=== PATIENT | female | born 1945 | race Caucasian/White ===

== ENCOUNTER 2017-08-12 13:03 | Inpatient (IN) ==
[2017-08-12] MEDS ORDERED: IOPAMIDOL 100 ML BOTTLE IV ONE (13:04)
[2017-08-12] MEDS ORDERED: LACTATED RINGERS 1,000 ML IV ONE ×2 (13:24→14:27)
[2017-08-12] MEDS ORDERED: PROMETHAZINE 25 MG/ML VIAL IV ONE ×2 (13:24→15:52)
[2017-08-12] MEDS ORDERED: HYDROmorphone 2 MG/ML VIAL IV PRN (13:24)
[2017-08-12] MEDS ORDERED: ONDANSETRON 4 MG/2 ML VIAL IV ONE (13:24)
--- NOTE | 2017-08-12 13:30 | Emergency Department Note ---
Nausea/Vomiting/Diarrhea HPI - General Chief complaint: Nausea/Vomiting/Diarrhea Stated complaint: n/v/d Time Seen by Provider: 08/12/17 13:05 Source: patient Mode of arrival: ambulatory Limitations: no limitations - History of Present Illness HPI Narrative: Patient presents, 30 minutes of severe sudden onset epigastric pain wrapping around to her back. Feeling as though she has to retch but not yet vomiting. Rates pain as severe. States that she has never had this before. History is limited due to acute duress - Related Data Home Medications Medication Instructions Recorded Confirmed Albuterol Sulfate [Proair Hfa] 8.5 gm IH Q4 PRN 12/09/14 12/09/14 Amitriptyline [Elavil] 10 mg PO HS 12/09/14 12/09/14 Budesonide/Formoterol Fumarate 10.2 gm IH BID 12/09/14 12/09/14 [Symbicort 80-4.5 Mcg Inhaler] Citalopram [Celexa] 40 mg PO DAILY 12/09/14 12/09/14 Furosemide [Lasix] 40 mg PO DAILY 12/09/14 12/09/14 Gabapentin [Neurontin] 300 mg PO BID 12/09/14 12/09/14 Insulin Aspart [Novolog Flexpen] 10 unit SQ DAILY 12/09/14 12/09/14 Insulin Detemir [Levemir Flextouch] 60 unit SQ DAILY 12/09/14 12/09/14 Insulin Detemir [Levemir Flextouch] 90 unit SQ HS 12/09/14 12/09/14 Ipratropium/Albuterol [Duoneb] 3 ml NEB Q6HRT 12/09/14 12/09/14 Montelukast Sodium [Singulair] 10 mg PO DAILY 12/09/14 12/09/14 Potassium Chloride [Klor-Con M10] 10 meq PO DAILY 12/09/14 12/09/14 Simvastatin [Zocor] 20 mg PO HS 12/09/14 12/09/14 Spironolactone [Aldactone] 50 mg PO DAILY 12/09/14 12/09/14 metFORMIN HCL [Fortamet] 1,000 mg PO BID 12/09/14 12/09/14 Previous Rx's Medication Instructions Recorded Cyclobenzaprine [Flexeril] 5 mg PO TIDP PRN #20 tablet 12/09/14 Allergies Allergy/AdvReac Type Severity Reaction Status Date / Time codeine Allergy Unknown Verified 12/09/14 14:30 Sulfa (Sulfonamide Allergy Unknown Verified 12/09/14 14:30 Antibiotics) Review of Systems All systems ED: reviewed and negative except as stated. Past Medical History - Past Medical History Attestation: Yes: The following information was validated with the patient. Medical history: Reports: COPD, peripheral artery disease Surgical history ED: Reports: non-contributory - Social History smoking status: Former smoker Alcohol use: Reports: Unknown Drug use: Reports: none Physical Exam Limitations: no limitations General appearance: alert, anxious, obese Head: atraumatic Eye: Present: normal appearance ENT: normal exam, mucous membranes moist Neck: Present: normal inspection. Absent: lymphadenopathy Chest: Present: normal inspection Respiratory: Present: other (coarse wheezes, O2 by nasal cannula). Absent: respiratory distress, accessory muscle use, prolonged expiratory phase Cardiovascular: Present: normal rhythm, tachycardia Abdominal: Present: tenderness Abdominal tenderness: Present: epigastrium Extremities: Present: normal inspection Neurological: Present: alert, oriented X3 Psychiatric: Present: anxious Skin: Present: diaphoresis Course - Reevaluation(s) Reevaluation #1: patient with improved pain; becoming somnolent, increasing O2 requirement. Currently on ventimask, arrouses to voice with mild confusion; sating 88-90%; Chest xray ordered; considering narcan and Bipap, monitoring closely [id number] ordered Time: 14:27 Reevaluation #2: Repeat examination shows much improved abdominal pain; very coarse breath sounds bilateral bases. Increased oxygen requirement still continue Patient modified code, no intubation Time: 16:58 Vital Signs Temperature 98.0 F 08/12/17 13:03 Pulse Rate 112 H 08/12/17 13:03 Respiratory Rate 14 08/12/17 13:03 Blood Pressure 165/98 08/12/17 13:03 Pulse Oximetry (%) 91 08/12/17 13:03 Temperature 98.0 F 08/12/17 13:03 Pulse Rate 117 H 08/12/17 15:16 Respiratory Rate 20 08/12/17 16:00 Blood Pressure 137/104 08/12/17 16:00 Pulse Oximetry (%) 5 L 08/12/17 16:00 Nausea/Vomiting/Diarrhea - Lab Data Result diagrams: 08/12/17 13:26 08/12/17 14:28 Lab Results 08/12/17 08/12/17 08/12/17 Range/Units 13:26 13:26 13:26 WBC 11.4 H (4.5-11.0) K/mcL RBC 4.99 (4.00-5.20) M/mcL Hgb 15.4 H (12.0-15.0) g/dL Hct 46.3 (36.0-48.0) % MCV 92.9 (80.0-100.0) fL MCH 30.9 (26.0-34.0) pg MCHC 33.2 (31.0-36.0) g/dL RDW 15.0 H (11.5-14.5) % Plt Count 308 (140-440) K/mcL MPV 10.1 (7.4-10.4) fL Total Counted Seg Neutrophils % (38-78) % Band Neutrophils % Lymphocytes % (15-49) % Metamyelocytes % (0-0) % Platelet Estimate (NORMAL) RBC Morphology (NORMAL) VBG Lactic Acid (0.5-2.2) mmol/L Sodium TNP Potassium TNP Chloride TNP Carbon Dioxide TNP Anion Gap TNP BUN TNP Creatinine TNP GFR Calculation TNP BUN/Creatinine Ratio TNP Glucose TNP Calcium TNP Total Bilirubin TNP AST TNP ALT TNP Alkaline Phosphatase TNP Troponin T TNP NT-Pro-B Natriuret Pep (0-125) pg/ml Total Protein TNP Albumin TNP Globulin TNP Albumin/Globulin Ratio TNP Amylase TNP Lipase TNP 08/12/17 08/12/17 08/12/17 Range/Units 14:05 14:28 14:28 WBC (4.5-11.0) K/mcL RBC (4.00-5.20) M/mcL Hgb (12.0-15.0) g/dL Hct (36.0-48.0) % MCV (80.0-100.0) fL MCH (26.0-34.0) pg MCHC (31.0-36.0) g/dL RDW (11.5-14.5) % Plt Count (140-440) K/mcL MPV (7.4-10.4) fL Total Counted Seg Neutrophils % (38-78) % Band Neutrophils % Lymphocytes % (15-49) % Metamyelocytes % (0-0) % Platelet Estimate (NORMAL) RBC Morphology (NORMAL) VBG Lactic Acid (0.5-2.2) mmol/L Sodium 142 Potassium 4.3 Chloride 100 Carbon Dioxide 25 Anion Gap 17.0 H BUN 16 Creatinine 0.8 GFR Calculation 75 BUN/Creatinine Ratio Glucose 56 L Calcium 9.0 Total Bilirubin 0.2 AST 21 ALT 13 Alkaline Phosphatase 86 Troponin T < 0.01 NT-Pro-B Natriuret Pep 322.1 H (0-125) pg/ml Total Protein 7.1 Albumin 4.0 Globulin 3.1 Albumin/Globulin Ratio 1.3 Amylase 51 Lipase 162 H 08/12/17 08/12/17 Range/Units 14:42 15:59 WBC (4.5-11.0) K/mcL RBC (4.00-5.20) M/mcL Hgb (12.0-15.0) g/dL Hct (36.0-48.0) % MCV (80.0-100.0) fL MCH (26.0-34.0) pg MCHC (31.0-36.0) g/dL RDW (11.5-14.5) % Plt Count (140-440) K/mcL MPV (7.4-10.4) fL Total Counted 100 Seg Neutrophils % 46 (38-78) % Band Neutrophils % Not Reportable Lymphocytes % 53 H (15-49) % Metamyelocytes % 1 H (0-0) % Platelet Estimate Normal (NORMAL) RBC Morphology Normal (NORMAL) VBG Lactic Acid 2.7 H (0.5-2.2) mmol/L Sodium Potassium Chloride Carbon Dioxide Anion Gap BUN Creatinine GFR Calculation BUN/Creatinine Ratio Glucose Calcium Total Bilirubin AST ALT Alkaline Phosphatase Troponin T NT-Pro-B Natriuret Pep (0-125) pg/ml Total Protein Albumin Globulin Albumin/Globulin Ratio Amylase Lipase - Radiology Data Radiology results reviewed: Yes I reviewed the patient's radiology results. Chest x-ray with multilobar patchy infiltrates, superimposed pulmonary edema CT of the abdomen shows asplenic, no acute findings Critical Care Time Critical Care Time: Yes Total Critical Care Time: 45 (Initial evaluation due to altered mental status, extreme pain; hypotensive requiring close monitoring, elevated lactic acidosis; variable oxygen requirement with hypoventilation) Disposition Pt seen by MANAGER OF QUALITY/PA only: No Clinical Impression: Pneumonia, Asplenia, Acute and chronic respiratory failure with hypoxia, Pulmonary edema Summary: Admit to hospitalist, received by Dr. White Disposition: Xfer As Inpt ([facility]) Condition: Fair Referrals: Ayleen Gerard MD [Primary Care Provider] -
[2017-08-12 13:54] LABS: Mean Cell Volume 92.9 fL (80.0-100.0); Mean Corpuscular HGB Conc 33.2 g/dL (31.0-36.0); Mean Corpuscular Hemoglobin 30.9 pg (26.0-34.0); Platelet Count 308 K/mcL (140-440); RBC 4.99 M/mcL (4.00-5.20)
[2017-08-12 15:10] LABS: ALT/SGPT 13 U/l (0-40); Albumin/Globulin Ratio 1.3 (1.0-2.3); Alkaline Phosphatase 86 U/L (39-117); Amylase 51 U/L (28-100); Blood Urea Nitrogen 16 mg/dl (8-23); Lipase 162 U/L (7-60)
[2017-08-12] MEDS ORDERED: DEXTROSE 50% 50 ML VIAL IV ONE (15:16)
--- NOTE | 2017-08-12 15:37 | XRay Report ---
CLINICAL INFORMATION: Hypoxia COMPARISON: 05/29/2008 FINDINGS: The heart is mildly enlarged, but increased. Mediastinum is unremarkable. Pulmonary vessels are mildly distended. No edema. Mild patchy bibasilar infiltrates or atelectasis noted IMPRESSION: Mild CHF Mild patchy bibasilar infiltrates or atelectasis Interpreted and Authenticated by: Chris Sanderson 08/12/17
[2017-08-12] MEDS ORDERED: LEVOFLOXACIN 750 MG/150 ML BAG IV ONE (15:49)
[2017-08-12 16:20] LABS: Lymphocytes % 53 % (15-49); Metamyelocytes % 1 % (0-0); Platelet Estimate NORMAL (NORMAL); RBC Morphology NORMAL (NORMAL); Segmented Neutrophils % 46 % (38-78)
--- NOTE | 2017-08-12 16:21 | Cat Scan Report ---
CLINICAL INFORMATION: Upper abdominal pain COMPARISON: Abdomen and pelvic CT - 05/25/2008. TECHNIQUE: Following enteric contrast, 80 cc of Isovue-300 were injected intravenously, and 60 seconds later, 0.625 mm helical slices were obtained from the mid heart through the subtrochanteric regions. Following reconstruction, 2.5 mm sagittal, coronal and axial reformatted images were processed and reviewed at bone, lung and soft tissue windows. Five minutes later, 0.625 mm helical slices were obtained from the mid heart through the kidneys and viewed at soft tissue windows.The exam was performed using radiation dose optimization techniques including, but not limited to, automated exposure control, adjustment of the mA and/or kV according to patient size and use of iterative reconstruction technique. FINDINGS: Lung bases show patchy airspace disease likely atelectasis and scar in the inferior right middle lobe, lingula and lower lobes - new from the previous study. There are no effusions. Visualized heart is mildly enlarged. Images through the abdomen show minimal fatty change within the liver. The gallbladder is surgically absent. The common hepatic and common bile ducts are moderately dilated with the CBD measuring 14 mm. This is slightly increased from previous study 12 mm. There is no stone, mass or other cause for distal bile duct obstruction. Findings compatible post cholecystectomy papillary stenosis. The pancreatic duct is unremarkable. Pancreatic parenchyma is also unremarkable. Both kidneys, right adrenal and aorta are normal. There is mild hyperplasia left adrenal gland. The spleen is quite diminutive. Suspect patient had splenectomy and there is hypertrophy of splenules. Images through the pelvis show hysterectomy/oophorectomy changes.The urinary bladder is normal. There is surgical mesh which has repaired an anterior abdominal wall hernia. There may be separation of the mesh from the right abdominal wall musculature. Stomach, small and large bowel are normal. Appendectomy changes technologist. Bone windows show no osseous abnormality IMPRESSION: 1. Anterior abdominal wall hernia repair with surgical mesh. There may be separation of the right mesh from the in the anterior abdominal wall musculature. No evidence recurrent hernia. 2. 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 This has progressed slightly from the [address] 3. Mild patchy airspace disease in both inferior lower lobes, right middle lobe and lingula is likely atelectasis or scar. If there is clinical support for pneumonia, suggest short-term radiographic follow-up. 4. Mild hyperplasia or diffuse adenoma of the left adrenal gland - stable 5. Diminutive spleen. Suspect patient has had a splenectomy and there is hypertrophy of residual splenules. There are surgical clips in this region Interpreted and Authenticated by: Chris Sanderson 08/12/17
[2017-08-12 16:23] LABS: proBNP 322.1 pg/ml (0-125)
[2017-08-12] MEDS ORDERED: cefTRIAXone 2 GM VIAL IV ONE ×2 (16:44→16:47)
[2017-08-12] MEDS ORDERED: HYDROCORTISONE SOD SUCC 100 MG VIAL IV ONE (16:47)
[2017-08-12] MEDS ORDERED: methylPREDNISolone SOD SUCC 125 MG/2 ML VIAL IV ONE (16:47)
[2017-08-12] MEDS ORDERED: IPRATROPIUM/ALBUTEROL 3 ML AMPUL.NEB NEB ONE (16:47)
[2017-08-12] MEDS ORDERED: ONDANSETRON 4 MG/2 ML VIAL IV PRN (17:51)
[2017-08-12] MEDS ORDERED: DEXTROSE 31 GM ORAL.SUSP PO PRN (17:51)
[2017-08-12] MEDS ORDERED: DEXTROSE 50% 50 ML VIAL IV PRN (17:51)
[2017-08-12] MEDS ORDERED: MAGNESIUM HYDROXIDE 30 ML ORAL.SUSP PO PRN (17:51)
[2017-08-12] MEDS ORDERED: IPRATROPIUM/ALBUTEROL 3 ML AMPUL.NEB NEB PRN (17:51)
[2017-08-12] MEDS: PANTOPRAZOLE 40 MG VIAL IV SCH (18:46)
[2017-08-12] MEDS ORDERED: ALBUTEROL SULFATE 1 PUFF INHALER IH PRN (18:57)
[2017-08-12 19:22] LABS: Appearance,Urine HAZY; Bilirubin,Urine NEG (NEG); Color,Urine YELLOW; Glucose,Urine (UA) NEGATIVE (NEG); Leukocyte Esterase,Urine NEG /uL (NEG); Protein,Urine NEG (NEG); Specific Gravity,Urine 1.048 (1.000-1.035); Urine Blood NEG mg/dL (<0.03); Urobilinogen,Urine NEG (NEG)
--- NOTE | 2017-08-12 19:47 | Internal Med History&Physical ---
Medical - H&P: [facility] Patient information: Note initiated : 08/12/17 at 7:38 pm Service Date, if different from initiated Date: [] Patient: Joelle Guadalupe a 71 y/o F admitted on 08/12/17 for n/v/d. History of present illness: Ms. Guadalupe is a 71 year old F, who presented with acute onset of epigastric pain associated with severe nausea, but no nausea. Patient has chronic diarrhea without change in bowel pattern. She denies fever, chills, coughing or CP. At baseline she is short of breath with minimal exertion and sleeps in a recliner chair. She has episodic wheezing and chronic pedal edema. She was last admitted to [facility] with exacerbation of COPD about one year ago. Patient had difficulty staying awake during H/P. 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 Has 2 sons Smoking status: Light tobacco smoker (3-4 cigs pd) Drug use: none Alcohol use: none Medical - H&P: Meds Home Medications Medication Instructions Recorded Confirmed Type Albuterol Sulfate [Proair Hfa] 8.5 gm IH Q4 PRN 12/09/14 08/12/17 History Amitriptyline [Elavil] 10 mg PO HS 12/09/14 08/12/17 History Budesonide/Formoterol Fumarate 10.2 gm IH BID 12/09/14 08/12/17 History [Symbicort 80-4.5 Mcg Inhaler] Citalopram [Celexa] 40 mg PO DAILY 12/09/14 08/12/17 History Cyclobenzaprine [Flexeril] 5 mg PO TIDP PRN #20 tablet 12/09/14 08/12/17 Rx Furosemide [Lasix] 40 mg PO DAILY 12/09/14 08/12/17 History Gabapentin [Neurontin] 300 mg PO BID 12/09/14 08/12/17 History Insulin Aspart [Novolog Flexpen] 10 unit SQ DAILY 12/09/14 08/12/17 History Insulin Detemir [Levemir Flextouch] 60 unit SQ DAILY 12/09/14 08/12/17 History Insulin Detemir [Levemir Flextouch] 90 unit SQ HS 12/09/14 08/12/17 History Ipratropium/Albuterol [Duoneb] 3 ml NEB Q6HRT 12/09/14 08/12/17 History Montelukast Sodium [Singulair] 10 mg PO DAILY 12/09/14 08/12/17 History Potassium Chloride [Klor-Con M10] 10 meq PO DAILY 12/09/14 08/12/17 History Simvastatin [Zocor] 20 mg PO HS 12/09/14 08/12/17 History Spironolactone [Aldactone] 50 mg PO DAILY 12/09/14 08/12/17 History metFORMIN HCL [Fortamet] 1,000 mg PO BID 12/09/14 08/12/17 History Allergies Allergy/AdvReac Type Severity Reaction Status Date / Time Sulfa (Sulfonamide Allergy Severe Hives Verified 08/13/17 07:57 Antibiotics) codeine Allergy Migraine Verified 08/13/17 07:57 Metolazone AdvReac Severe Migraine Verified 08/13/17 07:57 morphine AdvReac Severe Migraine Verified 08/13/17 07:57 Pneumococcal Vaccine AdvReac Severe Migraine Verified 08/13/17 07:57 Medical - H&P: Exam - Constitutional Vitals: Temp Pulse Resp BP Pulse Ox 98.0 F 112 H 15 128/79 92 08/12/17 18:00 08/12/17 18:00 08/12/17 18:00 08/12/17 18:00 08/12/17 18:00 General appearance: morbidly obese - Head Head exam: Present: normal inspection - Respiratory Respiratory exam: Present: prolonged expiratory phase - GI/Abdominal GI/Abdominal exam: Present: soft - Rectal Rectal exam: Present: deferred Medical - H&P: Reslt - Labs CBC & Chem 7: 08/13/17 03:47 08/13/17 03:47 Labs: Short CBC 08/12/17 Range/Units 13:26 WBC 11.4 H (4.5-11.0) K/mcL Hgb 15.4 H (12.0-15.0) g/dL Hct 46.3 (36.0-48.0) % Plt Count 308 (140-440) K/mcL BMP 08/12/17 08/12/17 13:26 14:28 Sodium TNP 142 Potassium TNP 4.3 Chloride TNP 100 Carbon Dioxide TNP 25 BUN TNP 16 Creatinine TNP 0.8 Glucose TNP 56 L Calcium TNP 9.0 Cardiac Enzymes 08/12/17 08/12/17 Range/Units 13:26 14:28 Troponin T TNP < 0.01 Liver Function 08/12/17 08/12/17 Range/Units 13:26 14:28 Total Bilirubin TNP 0.2 AST TNP 21 ALT TNP 13 Alkaline Phosphatase TNP 86 Albumin TNP 4.0 Urine 08/12/17 Range/Units 18:35 Urine Color Yellow Urine Appearance Hazy Urine pH 5.0 (5.0-9.0) Ur Specific [place] 1.048 H (1.000-1.035) Urine Protein Neg (NEG) mg/dL Urine Glucose (UA) Negative (NEG) mg/dL Medical - H&P: A/P - Narrative A/P Narrative: 71-year-old with the following problems: + Epigastric pain a/w nausea CT-abdomen / pelvis: anterior abdominal wall hernia repair with surgical mesh, mild patchy airway disease lower lobes, absent spleen. Radiographically suspicious for pneumonia, but not supported clinically (no coughing, fever, leukocytosis, no history of aspiration) DD GERD, pneumonia Check pro-calcitonin (sample in lab), IV protonix + Exacerbation of COPD Had bronchospasm and inablity to complete sentences without gasping for air. Will give neb treatment + Morbid obesity + Obesity-hypoventilation syndrome Is on chronic oxygen Has DHARA, states is clautrophobic and wouldn't tolerate being on CPAP/BiPAP + DM Continue home regimen + HL + Asplenia (s/p splenectomy) DVT prophylaxis: Lovenox Code status: full
[2017-08-12] MEDS: IPRATROPIUM/ALBUTEROL 3 ML AMPUL.NEB NEB SCH (20:25)
[2017-08-12] MEDS ORDERED: INSULIN GLARGINE, HUMAN 1 UNIT/0.01 ML SQ ONE (21:00)
[2017-08-12] MEDS ORDERED: INSULIN DETEMIR SQ SCH (21:00)
[2017-08-12] MEDS: DOCUSATE SODIUM 100 MG CAPSULE PO SCH (21:05)
[2017-08-12] MEDS: INSULIN LISPRO 1 UNIT/0.01 ML UNIT SQ SCH (21:05)
[2017-08-12] MEDS: METFORMIN HCL 1000 MG PO SCH (21:07)
[2017-08-12] MEDS: BUDESONIDE INH SCH (21:07)
[2017-08-12] MEDS: 0.9 % SODIUM CHLORIDE 10 ML SYRINGE IV SCH (21:07)
[2017-08-12] MEDS: SIMVASTATIN 20 MG TABLET PO SCH (21:07)
[2017-08-12] MEDS: GABAPENTIN 300 MG CAPSULE PO SCH (21:07)
[2017-08-12] MEDS: FORMOTEROL INH SCH (21:07)
[2017-08-12] MEDS: AMITRIPTYLINE 10 MG TABLET PO SCH (21:11)
[2017-08-13] MEDS: IPRATROPIUM/ALBUTEROL 3 ML AMPUL.NEB NEB SCH ×4 (02:11→19:35)
[2017-08-13] MEDS: CYCLOBENZAPRINE 10 MG TABLET PO PRN ×2 (02:18→21:15)
[2017-08-13 05:32] LABS: Basophils # (Auto) 0 K/mcL (0.0-0.3); Basophils % (Auto) 0 % (0.0-2.0); Eosinophils # (Auto) 0.9 K/mcL (0.0-0.7); Eosinophils % (Auto) 3.7 % (0.0-7.0); Granulocytes % (Auto) 92.2 % (38.0-78.0); Lymphocytes # (Auto) 0.6 K/mcL (1.5-4.8); Lymphocytes % (Auto) 2.6 % (15.5-49.0); Mean Cell Volume 94.1 fL (80.0-100.0); Mean Corpuscular HGB Conc 32.9 g/dL (31.0-36.0); Monocytes # (Auto) 0.4 K/mcL (0.1-0.9); Monocytes % (Auto) 1.5 % (1.0-12.0); Platelet Count 337 K/mcL (140-440); RBC 4.17 M/mcL (4.00-5.20); Red Cell Distribution Width 15.1 % (11.5-14.5)
[2017-08-13] MEDS: 0.9 % SODIUM CHLORIDE 10 ML SYRINGE IV SCH ×3 (05:36→21:13)
[2017-08-13 05:53] LABS: Hemoglobin A1C 8.5 % HGB (4.0-6.0)
[2017-08-13 06:14] LABS: ALT/SGPT 20 U/l (0-40); Albumin 3.6 gm/dL (3.2-5.2); Albumin/Globulin Ratio 1.2 (1.0-2.3); Alkaline Phosphatase 73 U/L (39-117); Bilirubin,Direct < 0.2 mg/dL (0.0-0.3); Blood Urea Nitrogen 18 mg/dl (8-23); Gamma Glutamyl Transpeptidase 163 U/L (5-36); Uric Acid 6.1 mg/dL (2.5-8.0)
[2017-08-13] MEDS ORDERED: ACETAMINOPHEN 1,000 MG/100 ML BOTTLE IV PRN (07:28)
[2017-08-13] MEDS ORDERED: VANCOMYCIN PER PHARMACY IV SCH (08:27)
[2017-08-13] MEDS: cefTRIAXone 2 GM VIAL IV SCH (08:45)
[2017-08-13] MEDS: POTASSIUM CHLORIDE 10 MEQ TABLET PO SCH (08:46)
[2017-08-13] MEDS: SPIRONOLACTONE 25 MG TABLET PO SCH (08:46)
[2017-08-13] MEDS: INSULIN LISPRO 1 UNIT/0.01 ML UNIT SQ SCH ×5 (08:46→21:11)
[2017-08-13] MEDS: MONTELUKAST 10 MG TABLET PO SCH (08:47)
[2017-08-13] MEDS: FUROSEMIDE 40 MG/4 ML VIAL IV SCH (08:47)
[2017-08-13] MEDS: PANTOPRAZOLE 40 MG VIAL IV SCH (08:47)
[2017-08-13] MEDS: GABAPENTIN 300 MG CAPSULE PO SCH ×2 (08:47→21:14)
[2017-08-13] MEDS: DOCUSATE SODIUM 100 MG CAPSULE PO SCH ×2 (08:47→20:59)
[2017-08-13] MEDS ORDERED: VANCOMYCIN 2,000 MG in 0.9 % SODIUM CHLORIDE 500 ML IV ONE (09:00)
[2017-08-13] MEDS ORDERED: INSULIN DETEMIR 60 UNIT SQ SCH (09:00)
[2017-08-13] MEDS ORDERED: FUROSEMIDE 40 MG TABLET PO SCH (09:00)
[2017-08-13] MEDS ORDERED: INSULIN ASPART 10 UNIT SQ SCH (09:00)
[2017-08-13] MEDS: INSULIN GLARGINE, HUMAN 1 UNIT/0.01 ML SQ SCH (09:37)
[2017-08-13] MEDS: ENOXAPARIN 40 MG/0.4 ML SYRINGE SQ SCH (09:38)
[2017-08-13] MEDS: FORMOTEROL INH SCH ×2 (11:14→21:14)
[2017-08-13] MEDS: CITALOPRAM 20 MG TABLET PO SCH ×2 (11:14→12:41)
[2017-08-13] MEDS: BUDESONIDE INH SCH ×2 (11:14→21:14)
[2017-08-13] MEDS: METFORMIN HCL 1000 MG PO SCH (11:14)
[2017-08-13] MEDS ORDERED: guaiFENesin/DEXTROMETHORPHAN ORAL SOL PO PRN (12:11)
[2017-08-13] MEDS: metFORMIN 500 MG TAB.XL.24H PO SCH (12:42)
[2017-08-13] MEDS ORDERED: metFORMIN 500 MG TAB.XL.24H PO SCH (17:30)
--- NOTE | 2017-08-13 20:18 | Internal Med Progress Note ---
Medical - PN: Subj Patient information: Note initiated : 08/13/17 at 8:09 pm Service Date, if different from initiated Date: [] Patient: Joelle Guadalupe a 71 y/o F admitted on 08/12/17 for N/V/D. Interval history: Admitted 08/12 with following problems: + Epigastric pain a/w nausea CT-abdomen / pelvis: anterior abdominal wall hernia repair with surgical mesh, mild patchy airway disease lower lobes, absent spleen. Radiographically suspicious for pneumonia, but not supported clinically (no coughing, fever, leukocytosis, no history of aspiration) DD GERD, pneumonia Check pro-calcitonin (sample in lab), IV protonix + Exacerbation of COPD Had bronchospasm and inablity to complete sentences without gasping for air. Will give neb treatment + Morbid obesity + Obesity-hypoventilation syndrome Is on chronic oxygen Has DHARA, states is clautrophobic and wouldn't tolerate being on CPAP/BiPAP + DM Continue home regimen + HL + Asplenia (s/p splenectomy) August 13: C/O epigastric pain and coughing. Up in chair. Tends to doze off. On 4L O2 sats 97-99%. Afebrile WBC up to 23. Probably steroid effect as she received 120 mg solumedrol in ED yesterday. However, patient is asplenic. Will treat empirically with Ceftriaxone and Vanco - Constitutional Vitals: Vital Signs Temp Pulse Resp BP Pulse Ox 97.8 F 95 H 18 118/69 97 08/13/17 15:33 08/13/17 19:37 08/13/17 19:37 08/13/17 15:33 08/13/17 19:39 Period Temp Pulse Resp BP Sys/Coker Pulse Ox Last 24 Hr 97.8 F-98.6 F 94-102 16-18 118-132/61-69 92-99 Intake and Output 08/13/17 08/13/17 08/13/17 05:59 13:59 21:59 Intake Total 240 / 240 100 / 100 Output Total 800 / 800 903 / 903 176 / 176 Balance -560 / -560 -903 / -903 -76 / -76 Weight 275 lb 12.8 oz Patient Weight 08/14/17 05:59 Weight 275 lb 12.8 oz Intake & Output: Intake & Output 08/13/17 08/13/17 08/13/17 05:59 13:59 21:59 Intake Total 240 / 240 100 / 100 Output Total 800 / 800 903 / 903 176 / 176 Balance -560 / -560 -903 / -903 -76 / -76 Weight 275 lb 12.8 oz Intake: Oral 240 / 240 100 / 100 Output: Void Amount 400 / 400 175 / 175 # of times incontinent of urine 3 / 3 1 / 1 Urine/Stool Mix 800 / 800 500 / 500 Other: Stool Size Small Stool Color Brown Stool Consistency Watery # Voids 3 1 # Bowel Movements 2 # of times incontinent of 2 Bowels General appearance: morbidly obese - Respiratory Respiratory exam: Present: decreased breath sounds - Cardiovascular Cardiovascular exam: Present: normal rate and rhythm - GI/Abdominal GI/Abdominal exam: Present: normal bowel sounds, soft - Extremities Exam Extremities exam: Present: pedal edema Medical - PN: Obj Da - Labs CBC & Chem 7: 08/13/17 03:47 08/13/17 03:47 Labs: Abnormal Lab Results 08/13/17 08/13/17 08/13/17 03:47 03:47 03:47 WBC 23.3 H Hgb RDW 15.1 H Gran % 92.2 H Lymph % (Auto) 2.6 L Gran # 21.5 H Lymph # (Auto) 0.6 L Eos # (Auto) 0.9 H Lymphocytes % Metamyelocytes % VBG Lactic Acid Anion Gap Glucose 331 H Hemoglobin A1c 8.5 H GGT 163 H NT-Pro-B Natriuret Pep Lipase Ur Specific [place] 08/12/17 08/12/17 08/12/17 18:35 15:59 14:42 WBC Hgb RDW Gran % Lymph % (Auto) Gran # Lymph # (Auto) Eos # (Auto) Lymphocytes % 53 H Metamyelocytes % 1 H VBG Lactic Acid 2.7 H Anion Gap Glucose Hemoglobin A1c GGT NT-Pro-B Natriuret Pep Lipase Ur Specific [place] 1.048 H 08/12/17 08/12/17 08/12/17 14:28 14:05 13:26 WBC 11.4 H Hgb 15.4 H RDW 15.0 H Gran % Lymph % (Auto) Gran # Lymph # (Auto) Eos # (Auto) Lymphocytes % Metamyelocytes % VBG Lactic Acid Anion Gap 17.0 H Glucose 56 L Hemoglobin A1c GGT NT-Pro-B Natriuret Pep 322.1 H Lipase 162 H Ur Specific [place] Meds: Medications Acetaminophen (Tylenol) 650 mg PO Q6HP PRN PRN Reason: PAIN/FEVER > 101 Albuterol Sulfate (Ventolin) 1 puff IH Q4HP PRN PRN Reason: Shortness Of Breath Albuterol/Ipratropium (Duoneb) 3 ml NEB Q4HP PRN PRN Reason: Wheezing Albuterol/Ipratropium (Duoneb) 3 ml NEB Q6HRT [facility] Last Admin: 08/13/17 19:35 Dose: 3 ml Amitriptyline HCl (Elavil) 10 mg PO HS [facility] Last Admin: 08/12/17 21:11 Dose: 10 mg Ceftriaxone Sodium (Rocephin) 2 gm IV DAILY [facility] Last Admin: 08/13/17 08:45 Dose: 2 gm Citalopram Hydrobromide (Celexa) 40 mg PO DAILY [facility] Last Admin: 08/13/17 12:41 Dose: 40 mg Cyclobenzaprine HCl (Flexeril) 5 mg PO TIDP PRN PRN Reason: Muscle Pain Last Admin: 08/13/17 02:18 Dose: 5 mg Dextrose (Dextrose 50%) 0 ml IV UD PRN PRN Reason: Hypoglycemia Diagnostic Test (Pha) (Accu-Chek) 1 each FS ACHS [facility] Last Admin: 08/13/17 18:54 Dose: Not Given Docusate Sodium (Colace) 100 mg PO BID [facility] Last Admin: 08/13/17 08:47 Dose: Not Given Enoxaparin Sodium (Lovenox) 40 mg SQ DAILY [facility] Last Admin: 08/13/17 09:38 Dose: 40 mg Furosemide (Lasix) 40 mg IV DAILY [facility] Last Admin: 08/13/17 08:47 Dose: 40 mg Gabapentin (Neurontin) 300 mg PO BID [facility] Last Admin: 08/13/17 08:47 Dose: 300 mg Glucose (Insta-Glucose) 15 gm PO PRN PRN PRN Reason: Hypoglycemia Guaifenesin (Robitussin Dm) 10 ml PO Q4HP PRN PRN Reason: Cough Acetaminophen (Ofirmev) 1,000 mg in 100 mls @ 200 mls/hr IV Q6HP PRN PRN Reason: PAIN/FEVER > 101 Vancomycin HCl 1,500 mg/ (Sodium Chloride) 500 mls @ 333.3 mls/hr IV Q12H [facility] Insulin Glargine (Lantus) 60 unit SQ DAILY [facility] Last Admin: 08/13/17 09:37 Dose: 60 unit Insulin Glargine (Lantus) 90 unit SQ HS [facility] Insulin Human Lispro (Humalog) 0 unit SQ ACHS [facility] PRN Reason: Protocol Last Admin: 08/13/17 18:07 Dose: 3 unit Insulin Human Lispro (Humalog) 10 unit SQ DAILY [facility] Last Admin: 08/13/17 09:30 Dose: 10 unit Magnesium Hydroxide (Milk Of Magnesia) 30 ml PO DAILYP PRN PRN Reason: Constipation Metformin HCl (Glucophage) 1,500 mg PO [facility] Last Admin: 08/13/17 12:42 Dose: 1,500 mg Metformin HCl (Glucophage) 1,000 mg PO DAILY@1730 [facility] Last Admin: 08/13/17 18:07 Dose: 1,000 mg Montelukast Sodium (Singular) 10 mg PO DAILY [facility] Last Admin: 08/13/17 08:47 Dose: 10 mg Ondansetron HCl (Zofran) 4 mg IV Q4HP PRN PRN Reason: Nausea And Vomiting Pantoprazole Sodium (Protonix) 40 mg IV DAILY [facility] Last Admin: 08/13/17 08:47 Dose: 40 mg Budesonide/Formoterol ( Symbicort) 80-4.5 Mcg Inhaler 2 dose INH BID [facility] Last Admin: 08/13/17 11:14 Dose: Not Given Potassium Chloride (Kdur) 10 meq PO [facility] Last Admin: 08/13/17 08:46 Dose: 10 meq Simvastatin (Zocor) 20 mg PO HS [facility] Last Admin: 08/12/17 21:07 Dose: 20 mg Sodium Chloride (Saline Flush) 10 ml IV Q8 [facility] Last Admin: 08/13/17 15:00 Dose: 10 ml Spironolactone (Aldactone) 50 mg PO DAILY [facility] Last Admin: 08/13/17 08:46 Dose: 50 mg Vancomycin HCl (Vancomycin Per Pharmacy) 1 order IV UD [facility] Medical - PN: A/P - Time Spent With Patient Total time spent is greater than 50% in coordination of care (as documented) at patient's floor/unit and/or counseling patient: 15 - 24 minutes - Narrative A/P Narrative: 71-year-old with the following problems: + Epigastric pain a/w nausea CT-abdomen / pelvis: anterior abdominal wall hernia repair with surgical mesh, mild patchy airway disease lower lobes, absent spleen. Radiographically suspicious for pneumonia, but not supported clinically (no coughing, fever, leukocytosis, no history of aspiration) DD GERD, pneumonia Check pro-calcitonin (sample in lab), IV protonix + Exacerbation of COPD Had bronchospasm and inablity to complete sentences without gasping for air. Will give neb treatment + Morbid obesity + Obesity-hypoventilation syndrome Is on chronic oxygen Has [place], states is clautrophobic and wouldn't tolerate being on CPAP/BiPAP + DM Continue home regimen + HL + Asplenia (s/p splenectomy) + Leukocytosis on hospital day 2 Patient asplenic DD steroid effect vs infection. Will empirically start on Vanco and ceftriaxone 08/13 DVT prophylaxis: Lovenox Code status: full
[2017-08-13] MEDS ORDERED: INSULIN GLARGINE, HUMAN 1 UNIT/0.01 ML SQ SCH (21:00)
[2017-08-13] MEDS: VANCOMYCIN 1,500 MG in 0.9 % SODIUM CHLORIDE 500 ML IV SCH (21:12)
[2017-08-13] MEDS: SIMVASTATIN 20 MG TABLET PO SCH (21:13)
[2017-08-13] MEDS: AMITRIPTYLINE 10 MG TABLET PO SCH (21:14)
[2017-08-14] MEDS: IPRATROPIUM/ALBUTEROL 3 ML AMPUL.NEB NEB SCH ×4 (01:13→19:09)
[2017-08-14] MEDS: ACETAMINOPHEN 325 MG TABLET PO PRN ×3 (04:30→23:27)
[2017-08-14] MEDS: 0.9 % SODIUM CHLORIDE 10 ML SYRINGE IV SCH ×5 (05:35→20:31)
[2017-08-14 05:51] LABS: Basophils # (Auto) 0.1 K/mcL (0.0-0.3); Basophils % (Auto) 0.3 % (0.0-2.0); Eosinophils % (Auto) 4.7 % (0.0-7.0); Granulocytes % (Auto) 75.8 % (38.0-78.0); Lymphocytes % (Auto) 13.7 % (15.5-49.0); Mean Cell Volume 94.9 fL (80.0-100.0); Mean Corpuscular HGB Conc 32.6 g/dL (31.0-36.0); Monocytes # (Auto) 1.2 K/mcL (0.1-0.9); Monocytes % (Auto) 5.5 % (1.0-12.0); Platelet Count 280 K/mcL (140-440); RBC 3.97 M/mcL (4.00-5.20); Red Cell Distribution Width 15.3 % (11.5-14.5)
[2017-08-14 06:13] LABS: ALT/SGPT 15 U/l (0-40); Albumin 3.5 gm/dL (3.2-5.2); Albumin/Globulin Ratio 1.3 (1.0-2.3); Alkaline Phosphatase 67 U/L (39-117); Bilirubin,Direct < 0.2 mg/dL (0.0-0.3); Blood Urea Nitrogen 24 mg/dl (8-23); Gamma Glutamyl Transpeptidase 121 U/L (5-36); Uric Acid 6.8 mg/dL (2.5-8.0)
[2017-08-14] MEDS: INSULIN LISPRO 1 UNIT/0.01 ML UNIT SQ SCH ×6 (07:30→20:24)
[2017-08-14] MEDS: metFORMIN 500 MG TAB.XL.24H PO SCH ×2 (08:29→16:49)
[2017-08-14] MEDS: INSULIN GLARGINE, HUMAN 1 UNIT/0.01 ML SQ SCH (08:29)
[2017-08-14] MEDS: GABAPENTIN 300 MG CAPSULE PO SCH ×2 (08:30→20:31)
[2017-08-14] MEDS: CITALOPRAM 20 MG TABLET PO SCH (08:30)
[2017-08-14] MEDS: MONTELUKAST 10 MG TABLET PO SCH (08:30)
[2017-08-14] MEDS: ENOXAPARIN 40 MG/0.4 ML SYRINGE SQ SCH (08:30)
[2017-08-14] MEDS: FUROSEMIDE 40 MG/4 ML VIAL IV SCH (08:31)
[2017-08-14] MEDS: POTASSIUM CHLORIDE 10 MEQ TABLET PO SCH (08:31)
[2017-08-14] MEDS: SPIRONOLACTONE 25 MG TABLET PO SCH (08:31)
[2017-08-14] MEDS: cefTRIAXone 2 GM VIAL IV SCH (08:43)
[2017-08-14] MEDS: FORMOTEROL INH SCH (08:46)
[2017-08-14] MEDS: PANTOPRAZOLE 40 MG VIAL IV SCH (08:46)
[2017-08-14] MEDS: BUDESONIDE INH SCH (08:46)
[2017-08-14] MEDS: DOCUSATE SODIUM 100 MG CAPSULE PO SCH ×2 (09:25→20:31)
[2017-08-14] MEDS: VANCOMYCIN 1,500 MG in 0.9 % SODIUM CHLORIDE 500 ML IV SCH ×2 (10:40→20:31)
[2017-08-14] MEDS ORDERED: DEXTROSE 50% 50 ML VIAL IV PRN (12:42)
[2017-08-14] MEDS ORDERED: VANCOMYCIN PER PHARMACY IV SCH (12:42)
[2017-08-14] MEDS ORDERED: ACETAMINOPHEN 1,000 MG/100 ML BOTTLE IV PRN (12:42)
[2017-08-14] MEDS ORDERED: DEXTROSE 31 GM ORAL.SUSP PO PRN (12:42)
[2017-08-14] MEDS ORDERED: IPRATROPIUM/ALBUTEROL 3 ML AMPUL.NEB NEB PRN (12:42)
[2017-08-14] MEDS ORDERED: ONDANSETRON 4 MG/2 ML VIAL IV PRN (12:42)
[2017-08-14] MEDS ORDERED: MAGNESIUM HYDROXIDE 30 ML ORAL.SUSP PO PRN (12:42)
--- NOTE | 2017-08-14 14:02 | Internal Med Progress Note ---
Medical - PN: Subj Patient information: Note initiated : 08/14/17 at 1:52 pm Service Date, if different from initiated Date: [] Patient: Joelle Guadalupe a 71 y/o F admitted on 08/12/17 for N/V/D. Interval history: Admitted 08/12 with following problems: + Epigastric pain a/w nausea CT-abdomen / pelvis: anterior abdominal wall hernia repair with surgical mesh, mild patchy airway disease lower lobes, absent spleen. Radiographically suspicious for pneumonia, but not supported clinically (no coughing, fever, leukocytosis, no history of aspiration) DD GERD, pneumonia Check pro-calcitonin (sample in lab), IV protonix + Exacerbation of COPD Had bronchospasm and inablity to complete sentences without gasping for air. Will give neb treatment + Morbid obesity + Obesity-hypoventilation syndrome Is on chronic oxygen Has DHARA, states is clautrophobic and wouldn't tolerate being on CPAP/BiPAP + DM Continue home regimen + HL + Asplenia (s/p splenectomy) August 13: C/O epigastric pain and coughing. Up in chair. Tends to doze off. On 4L O2 sats 97-99%. Afebrile WBC up to 23. Probably steroid effect as she received 120 mg solumedrol in ED yesterday. However, patient is asplenic. Will treat empirically with Ceftriaxone and Vanco August 14: Afebrile. Cough and pain with coughing O2 sat on RA: 95%. Bloodsugars: 112-187 WBC 21, on Ceftriaxone and Vanco - Constitutional Vitals: Vital Signs Temp Pulse Resp BP Pulse Ox 96.6 F L 83 18 146/84 95 08/14/17 12:44 08/14/17 13:38 08/14/17 13:38 08/14/17 12:44 08/14/17 13:16 Period Temp Pulse Resp BP Sys/Coker Pulse Ox Last 24 Hr 96.6 F-98.0 F 83-104 16-20 118-149/68-84 92-99 Intake and Output 08/13/17 08/14/17 08/14/17 21:59 05:59 13:59 Intake Total 100 / 100 740 / 740 600 / 600 Output Total 176 / 176 300 / 300 2125 / 2125 Balance -76 / -76 440 / 440 -1525 / -1525 Weight 276 lb 8 oz Intake & Output: Intake & Output 08/13/17 08/14/17 08/14/17 21:59 05:59 13:59 Intake Total 100 / 100 740 / 740 600 / 600 Output Total 176 / 176 300 / 300 2124 Balance -76 / -76 440 / 440 -1525 / -1525 Weight 276 lb 8 oz Intake: IV 500 / 500 Vancomycin 1,500 mg In Sodium 500 / 500 Chloride 0.9% 500 ml @ 333.3 mls/hr IV Q12H [facility] Rx#: [id number] Oral 100 / 100 240 / 240 600 / 600 Output: Void Amount 175 / 175 300 / 300 2124 # of times incontinent of urine Other: Meal Lunch Percent of Meal Consumed 100% Feeding Ability Independent Stool Size Small Stool Color Brown Stool Consistency Watery # Voids 1 4 General appearance: morbidly obese - Respiratory Respiratory exam: Present: normal respiratory exam, rhonchi (at bases). Absent : wheezes - Cardiovascular Cardiovascular exam: Present: normal rate and rhythm - GI/Abdominal GI/Abdominal exam: Present: normal bowel sounds, soft - Extremities Exam Extremities exam: Present: pedal edema Medical - PN: Obj Da - Labs CBC & Chem 7: 08/14/17 04:38 08/14/17 04:38 Labs: Abnormal Lab Results 08/14/17 08/14/17 08/13/17 04:38 04:38 03:47 WBC 21.7 H RBC 3.97 L Hgb RDW 15.3 H Gran % Lymph % (Auto) 13.7 L Gran # 16.4 H Lymph # (Auto) [place] # (Auto) 1.2 H Eos # (Auto) 1.0 H Lymphocytes % Metamyelocytes % VBG Lactic Acid Anion Gap BUN 24 H Glucose 108 H Hemoglobin A1c 8.5 H Phosphorus 2.5 L GGT 121 H NT-Pro-B Natriuret Pep Lipase Ur Specific [place] 08/13/17 08/13/17 08/12/17 03:47 03:47 18:35 WBC 23.3 H RBC Hgb RDW 15.1 H Gran % 92.2 H Lymph % (Auto) 2.6 L Gran # 21.5 H Lymph # (Auto) 0.6 L [place] # (Auto) Eos # (Auto) 0.9 H Lymphocytes % Metamyelocytes % VBG Lactic Acid Anion Gap BUN Glucose 331 H Hemoglobin A1c Phosphorus GGT 163 H NT-Pro-B Natriuret Pep Lipase Ur Specific [place] 1.048 H 08/12/17 08/12/17 08/12/17 15:59 14:42 14:28 WBC RBC Hgb RDW Gran % Lymph % (Auto) Gran # Lymph # (Auto) [place] # (Auto) Eos # (Auto) Lymphocytes % 53 H Metamyelocytes % 1 H VBG Lactic Acid 2.7 H Anion Gap 17.0 H BUN Glucose 56 L Hemoglobin A1c Phosphorus GGT NT-Pro-B Natriuret Pep Lipase 162 H Ur Specific [place] 08/12/17 08/12/17 14:05 13:26 WBC 11.4 H RBC Hgb 15.4 H RDW 15.0 H Gran % Lymph % (Auto) Gran # Lymph # (Auto) [place] # (Auto) Eos # (Auto) Lymphocytes % Metamyelocytes % VBG Lactic Acid Anion Gap BUN Glucose Hemoglobin A1c Phosphorus GGT NT-Pro-B Natriuret Pep 322.1 H Lipase Ur Specific [place] Meds: Medications Acetaminophen (Tylenol) 650 mg PO Q6HP PRN PRN Reason: PAIN/FEVER > 101 Albuterol Sulfate (Ventolin) 1 puff IH Q4HP PRN PRN Reason: Shortness Of Breath Albuterol/Ipratropium (Duoneb) 3 ml NEB Q4HP PRN PRN Reason: Wheezing Albuterol/Ipratropium (Duoneb) 3 ml NEB Q6HRT [facility] Last Admin: 08/14/17 13:37 Dose: 3 ml Amitriptyline HCl (Elavil) 10 mg PO HS [facility] Ceftriaxone Sodium (Rocephin) 2 gm IV DAILY [facility] Citalopram Hydrobromide (Celexa) 40 mg PO DAILY [facility] Cyclobenzaprine HCl (Flexeril) 5 mg PO TIDP PRN PRN Reason: Muscle Pain Dextrose (Dextrose 50%) 0 ml IV UD PRN PRN Reason: Hypoglycemia Diagnostic Test (Pha) (Accu-Chek) 1 each FS ACHS [facility] Docusate Sodium (Colace) 100 mg PO BID [facility] Enoxaparin Sodium (Lovenox) 40 mg SQ DAILY [facility] Furosemide (Lasix) 40 mg IV DAILY [facility] Gabapentin (Neurontin) 300 mg PO BID [facility] Glucose (Insta-Glucose) 15 gm PO PRN PRN PRN Reason: Hypoglycemia Guaifenesin (Robitussin Dm) 10 ml PO Q4HP PRN PRN Reason: Cough Acetaminophen (Ofirmev) 1,000 mg in 100 mls @ 200 mls/hr IV Q6HP PRN PRN Reason: PAIN/FEVER > 101 Vancomycin HCl 1,500 mg/ (Sodium Chloride) 500 mls @ 333.3 mls/hr IV Q12H [facility] Insulin Glargine (Lantus) 60 unit SQ DAILY [facility] Insulin Glargine (Lantus) 90 unit SQ HS [facility] Insulin Human Lispro (Humalog) 0 unit SQ ACHS [facility] PRN Reason: Protocol Insulin Human Lispro (Humalog) 10 unit SQ DAILY [facility] Magnesium Hydroxide (Milk Of Magnesia) 30 ml PO DAILYP PRN PRN Reason: Constipation Metformin HCl (Glucophage) 1,500 mg PO QAMCC [facility] Metformin HCl (Glucophage) 1,000 mg PO DAILY@1730 [facility] Montelukast Sodium (Singular) 10 mg PO DAILY [facility] Ondansetron HCl (Zofran) 4 mg IV Q4HP PRN PRN Reason: Nausea And Vomiting Pantoprazole Sodium (Protonix) 40 mg IV DAILY [facility] Patient Own Medication () 2 dose INH BID [facility] Potassium Chloride (Kdur) 10 meq PO QAMCC [facility] Simvastatin (Zocor) 20 mg PO HS [facility] Sodium Chloride (Saline Flush) 10 ml IV Q8 [facility] Spironolactone (Aldactone) 50 mg PO DAILY [facility] Vancomycin HCl (Vancomycin Per Pharmacy) 1 order IV [facility] Medical - PN: A/P - Time Spent With Patient Total time spent is greater than 50% in coordination of care (as documented) at patient's floor/unit and/or counseling patient: - Narrative A/P Narrative: 71-year-old with the following problems: + Epigastric pain a/w nausea CT-abdomen / pelvis: anterior abdominal wall hernia repair with surgical mesh, mild patchy airway disease lower lobes, absent spleen. Radiographically suspicious for pneumonia, but not supported clinically (no coughing, fever, leukocytosis, no history of aspiration) DD GERD, pneumonia Check pro-calcitonin (sample in lab), IV protonix WBC 20's. 08/13 started on Vanco and ceftriaxone empirically + Exacerbation of COPD Had bronchospasm and inablity to complete sentences without gasping for air. Will give neb treatment + Morbid obesity + Obesity-hypoventilation syndrome Is on chronic oxygen Has [place], states is clautrophobic and wouldn't tolerate being on CPAP/BiPAP + DM Continue home regimen Poorly controlled with A1C8.5 + HL + Asplenia (s/p splenectomy) + Leukocytosis on hospital day 2 Patient asplenic DD steroid effect vs infection. Will empirically start on Vanco and ceftriaxone 08/13 DVT prophylaxis: Lovenox Code status: full
--- NOTE | 2017-08-14 15:34 | XRay Report ---
CLINICAL INFORMATION: Follow pneumonia COMPARISON: 08/12/2017 FINDINGS: Mild cardiomegaly is unchanged. Mediastinum is unremarkable. Pulmonary vessels are mildly distended, but unchanged. Bibasilar infiltrates or atelectasis have improved considerably since the study two days ago. No definite effusions IMPRESSION: Mild persistent CHF Marked improvement in bibasilar infiltrate or atelectasis study two days ago. Only minimal residual Interpreted and Authenticated by: Chris Sanderson 08/14/17
[2017-08-14] MEDS: AMITRIPTYLINE 10 MG TABLET PO SCH (20:31)
[2017-08-14] MEDS: SIMVASTATIN 20 MG TABLET PO SCH (20:31)
[2017-08-14] MEDS: PATIENTS OWN MEDICATION 1 DOSE MISCELL INH SCH (20:32)
[2017-08-14] MEDS ORDERED: INSULIN GLARGINE, HUMAN 1 UNIT/0.01 ML SQ SCH (21:00)
[2017-08-14] MEDS: CYCLOBENZAPRINE 10 MG TABLET PO PRN (22:30)
[2017-08-15] MEDS: IPRATROPIUM/ALBUTEROL 3 ML AMPUL.NEB NEB SCH ×4 (00:48→18:58)
[2017-08-15 05:49] LABS: Basophils # (Auto) 0.1 K/mcL (0.0-0.3); Basophils % (Auto) 0.3 % (0.0-2.0); Eosinophils # (Auto) 1.1 K/mcL (0.0-0.7); Eosinophils % (Auto) 6.3 % (0.0-7.0); Granulocytes % (Auto) 70.3 % (38.0-78.0); Lymphocytes # (Auto) 3.2 K/mcL (1.5-4.8); Lymphocytes % (Auto) 18.6 % (15.5-49.0); Mean Cell Volume 92.7 fL (80.0-100.0); Mean Corpuscular HGB Conc 32.9 g/dL (31.0-36.0); Mean Corpuscular Hemoglobin 30.5 pg (26.0-34.0); Monocytes # (Auto) 0.8 K/mcL (0.1-0.9); Monocytes % (Auto) 4.5 % (1.0-12.0); Platelet Count 321 K/mcL (140-440); RBC 4.14 M/mcL (4.00-5.20)
[2017-08-15 06:11] LABS: ALT/SGPT 14 U/l (0-40); Albumin 3.4 gm/dL (3.2-5.2); Albumin/Globulin Ratio 1.1 (1.0-2.3); Alkaline Phosphatase 72 U/L (39-117); Bilirubin,Direct < 0.2 mg/dL (0.0-0.3); Blood Urea Nitrogen 19 mg/dl (8-23); Gamma Glutamyl Transpeptidase 120 U/L (5-36); Uric Acid 6.8 mg/dL (2.5-8.0)
[2017-08-15] MEDS: 0.9 % SODIUM CHLORIDE 10 ML SYRINGE IV SCH ×3 (06:47→21:15)
[2017-08-15] MEDS: ACETAMINOPHEN 325 MG TABLET PO PRN ×2 (07:00→14:56)
[2017-08-15] MEDS: INSULIN LISPRO 1 UNIT/0.01 ML UNIT SQ SCH ×5 (07:09→21:40)
[2017-08-15] MEDS: CYCLOBENZAPRINE 10 MG TABLET PO PRN (07:10)
[2017-08-15] MEDS ORDERED: metFORMIN 500 MG TAB.XL.24H PO SCH (08:00)
[2017-08-15] MEDS ORDERED: INSULIN GLARGINE, HUMAN 1 UNIT/0.01 ML SQ SCH (09:00)
[2017-08-15] MEDS ORDERED: FUROSEMIDE 40 MG TABLET PO SCH (09:00)
[2017-08-15] MEDS ORDERED: FUROSEMIDE 40 MG/4 ML VIAL IV SCH (09:00)
[2017-08-15] MEDS: metFORMIN 500 MG TAB.XL.24H PO SCH ×2 (09:00→17:30)
[2017-08-15] MEDS ORDERED: PANTOPRAZOLE 40 MG VIAL IV SCH (09:00)
[2017-08-15] MEDS: VANCOMYCIN 1,500 MG in 0.9 % SODIUM CHLORIDE 500 ML IV SCH ×2 (09:27→21:30)
[2017-08-15] MEDS: cefTRIAXone 2 GM VIAL IV SCH (09:27)
[2017-08-15] MEDS: ENOXAPARIN 40 MG/0.4 ML SYRINGE SQ SCH (09:27)
[2017-08-15] MEDS: LOSARTAN 50 MG TABLET PO SCH (09:28)
[2017-08-15] MEDS: GABAPENTIN 300 MG CAPSULE PO SCH ×2 (09:29→21:30)
[2017-08-15] MEDS: MONTELUKAST 10 MG TABLET PO SCH (09:29)
[2017-08-15] MEDS: HYDROCHLOROTHIAZIDE 25 MG TABLET PO SCH (09:29)
[2017-08-15] MEDS: CITALOPRAM 20 MG TABLET PO SCH (09:29)
[2017-08-15] MEDS: POTASSIUM CHLORIDE 10 MEQ TABLET PO SCH (09:29)
[2017-08-15] MEDS: INSULIN GLARGINE, HUMAN 1 UNIT/0.01 ML SQ SCH ×2 (09:29→21:29)
[2017-08-15] MEDS: oxyCODONE HCL 5 MG TABLET PO PRN ×3 (09:29→21:30)
[2017-08-15] MEDS: SPIRONOLACTONE 25 MG TABLET PO SCH (09:30)
[2017-08-15] MEDS: DOCUSATE SODIUM 100 MG CAPSULE PO SCH ×2 (09:30→21:30)
--- NOTE | 2017-08-15 09:59 | Internal Med Progress Note ---
Medical - PN: Subj Patient information: Note initiated : 08/15/17 at 9:54 am Service Date, if different from initiated Date: [] Patient: Joelle Guadalupe 71 y/o F admitted on 08/12/17 for N/V/D. Chief Complaint: [] Interval history: Admitted 08/12 with following problems: + Epigastric pain a/w nausea CT-abdomen / pelvis: anterior abdominal wall hernia repair with surgical mesh, mild patchy airway disease lower lobes, absent spleen. Radiographically suspicious for pneumonia, but not supported clinically (no coughing, fever, leukocytosis, no history of aspiration) DD GERD, pneumonia Check pro-calcitonin (sample in lab), IV protonix + Exacerbation of COPD Had bronchospasm and inablity to complete sentences without gasping for air. Will give neb treatment + Morbid obesity + Obesity-hypoventilation syndrome Is on chronic oxygen Has DHARA, states is clautrophobic and wouldn't tolerate being on CPAP/BiPAP + DM Continue home regimen + HL + Asplenia (s/p splenectomy) August 13: C/O epigastric pain and coughing. Up in chair. Tends to doze off. On 4L O2 sats 97-99%. Afebrile WBC up to 23. Probably steroid effect as she received 120 mg solumedrol in ED yesterday. However, patient is asplenic. Will treat empirically with Ceftriaxone and Vanco August 14: Afebrile. Cough and pain with coughing O2 sat on RA: 95%. Bloodsugars: 112-187 WBC 21, on Ceftriaxone and Vanco August 15. C/O back pain. Less coughing. Afebrile. I/O: -700 Weight down to 257 from 275 lb. WBC down to 17 from 22. CXR 08/14 showed marked improvement compared to 08/12. Cont current antibiotics. Lasix and Protonix to po Low am BS. Will decrease HS lantus High BPs. Start Losartan/HCTZ - Constitutional Vitals: Vital Signs Temp Pulse Resp BP Pulse Ox 97.0 F 77 18 188/81 91 08/15/17 07:12 08/15/17 07:43 08/15/17 07:43 08/15/17 07:54 08/15/17 07:12 Period Temp Pulse Resp BP Sys/Coker Pulse Ox Last 24 Hr 96.6 F-98.5 F 75-90 16-22 126-199/78-103 91-96 Intake and Output 08/14/17 08/15/17 08/15/17 21:59 05:59 13:59 Intake Total 820 / 820 886 / 886 Output Total 775 / 775 600 / 600 Balance 45 / 45 286 / 286 Weight 257 lb 8 oz Intake & Output: Intake & Output 08/14/17 08/15/17 08/15/17 21:59 05:59 13:59 Intake Total 820 / 820 886 / 886 Output Total 775 / 775 600 / 600 Balance 45 / 45 286 / 286 Weight 257 lb 8 oz Intake: IV 500 / 500 Vancomycin 1,500 mg In Sodium 500 / 500 Chloride 0.9% 500 ml @ 333.3 mls/hr IV Q12H [facility] Rx#: [id number] Oral 820 / 820 386 / 386 Output: Void Amount 775 / 775 600 / 600 Other: Meal Dinner symone crackers and milk Percent of Meal Consumed 100% 100% Feeding Ability Assist with Tray Set Up Independent General appearance: morbidly obese, no acute distress - Respiratory Respiratory exam: Present: normal respiratory exam - Cardiovascular Cardiovascular exam: Present: normal rate and rhythm - Extremities Exam Extremities exam: Present: pedal edema Medical - PN: Obj Da - Labs CBC & Chem 7: 08/15/17 04:26 08/15/17 04:26 Labs: Abnormal Lab Results 08/15/17 08/15/17 08/14/17 04:26 04:26 04:38 WBC 17.2 H RBC Hgb RDW 15.0 H Gran % Lymph % (Auto) Gran # 12.1 H Lymph # (Auto) [place] # (Auto) Eos # (Auto) 1.1 H Lymphocytes % Metamyelocytes % VBG Lactic Acid Anion Gap BUN 24 H Glucose 47 L 108 H Hemoglobin A1c Phosphorus 2.5 L GGT 120 H 121 H NT-Pro-B Natriuret Pep Triglycerides 165 H Lipase Ur Specific [place] 08/14/17 08/13/17 08/13/17 04:38 03:47 03:47 WBC 21.7 H RBC 3.97 L Hgb RDW 15.3 H Gran % Lymph % (Auto) 13.7 L Gran # 16.4 H Lymph # (Auto) [place] # (Auto) 1.2 H Eos # (Auto) 1.0 H Lymphocytes % Metamyelocytes % VBG Lactic Acid Anion Gap BUN Glucose 331 H Hemoglobin A1c 8.5 H Phosphorus GGT 163 H NT-Pro-B Natriuret Pep Triglycerides Lipase Ur Specific [place] 08/13/17 08/12/17 08/12/17 03:47 18:35 15:59 WBC 23.3 H RBC Hgb RDW 15.1 H Gran % 92.2 H Lymph % (Auto) 2.6 L Gran # 21.5 H Lymph # (Auto) 0.6 L [place] # (Auto) Eos # (Auto) 0.9 H Lymphocytes % 53 H Metamyelocytes % 1 H VBG Lactic Acid Anion Gap BUN Glucose Hemoglobin A1c Phosphorus GGT NT-Pro-B Natriuret Pep Triglycerides Lipase Ur Specific [place] 1.048 H 08/12/17 08/12/17 08/12/17 14:42 14:28 14:05 WBC RBC Hgb RDW Gran % Lymph % (Auto) Gran # Lymph # (Auto) [place] # (Auto) Eos # (Auto) Lymphocytes % Metamyelocytes % VBG Lactic Acid 2.7 H Anion Gap 17.0 H BUN Glucose 56 L Hemoglobin A1c Phosphorus GGT NT-Pro-B Natriuret Pep 322.1 H Triglycerides Lipase 162 H Ur Specific [place] 08/12/17 13:26 WBC 11.4 H RBC Hgb 15.4 H RDW 15.0 H Gran % Lymph % (Auto) Gran # Lymph # (Auto) [place] # (Auto) Eos # (Auto) Lymphocytes % Metamyelocytes % VBG Lactic Acid Anion Gap BUN Glucose Hemoglobin A1c Phosphorus GGT NT-Pro-B Natriuret Pep Triglycerides Lipase Ur Specific [place] Meds: Medications Acetaminophen (Tylenol) 975 mg PO Q6HP PRN PRN Reason: PAIN/FEVER > 101 Albuterol Sulfate (Ventolin) 1 puff IH Q4HP PRN PRN Reason: Shortness Of Breath Albuterol/Ipratropium (Duoneb) 3 ml NEB Q4HP PRN PRN Reason: Wheezing Albuterol/Ipratropium (Duoneb) 3 ml NEB Q6HRT [facility] Last Admin: 08/15/17 07:43 Dose: 3 ml Amitriptyline HCl (Elavil) 10 mg PO HS [facility] Last Admin: 08/14/17 20:31 Dose: 10 mg Ceftriaxone Sodium (Rocephin) 2 gm IV DAILY [facility] Last Admin: 08/15/17 09:27 Dose: 2 gm Citalopram Hydrobromide (Celexa) 40 mg PO DAILY [facility] Last Admin: 08/15/17 09:29 Dose: 40 mg Cyclobenzaprine HCl (Flexeril) 5 mg PO TIDP PRN PRN Reason: Muscle Pain Last Admin: 08/15/17 07:10 Dose: 5 mg Dextrose (Dextrose 50%) 0 ml IV UD PRN PRN Reason: Hypoglycemia Diagnostic Test (Pha) (Accu-Chek) 1 each FS ACHS [facility] Last Admin: 08/15/17 07:41 Dose: 1 each Docusate Sodium (Colace) 100 mg PO BID [facility] Last Admin: 08/15/17 09:30 Dose: Not Given Enoxaparin Sodium (Lovenox) 40 mg SQ DAILY [facility] Last Admin: 08/15/17 09:27 Dose: 40 mg Furosemide (Lasix) 40 mg PO DAILY [facility] Last Admin: 08/15/17 09:30 Dose: 40 mg Gabapentin (Neurontin) 300 mg PO BID [facility] Last Admin: 08/15/17 09:29 Dose: 300 mg Glucose (Insta-Glucose) 15 gm PO PRN PRN PRN Reason: Hypoglycemia Guaifenesin (Robitussin Dm) 10 ml PO Q4HP PRN PRN Reason: Cough Hydrochlorothiazide (Oretic) 25 mg PO DAILY [facility] Last Admin: 08/15/17 09:29 Dose: 25 mg Acetaminophen (Ofirmev) 1,000 mg in 100 mls @ 200 mls/hr IV Q6HP PRN PRN Reason: PAIN/FEVER > 101 Vancomycin HCl 1,500 mg/ (Sodium Chloride) 500 mls @ 333.3 mls/hr IV Q12H [facility] Last Admin: 08/15/17 09:27 Dose: 250 mls/hr Insulin Glargine (Lantus) 60 unit SQ DAILY [facility] Last Admin: 08/15/17 09:28 Dose: 60 unit Insulin Glargine (Lantus) 70 unit SQ HS [facility] Last Admin: 08/15/17 09:29 Dose: Not Given Insulin Human Lispro (Humalog) 0 unit SQ ACHS [facility] PRN Reason: Protocol Last Admin: 08/15/17 07:09 Dose: Not Given Insulin Human Lispro (Humalog) 10 unit SQ DAILY [facility] Losartan Potassium (Cozaar) 100 mg PO DAILY [facility] Last Admin: 08/15/17 09:28 Dose: 100 mg Magnesium Hydroxide (Milk Of Magnesia) 30 ml PO DAILYP PRN PRN Reason: Constipation Metformin HCl (Glucophage) 1,000 mg PO DAILY@1730 [facility] Last Admin: 08/14/17 16:49 Dose: 1,000 mg Metformin HCl (Glucophage) 1,000 mg PO [facility] Montelukast Sodium (Singular) 10 mg PO DAILY [facility] Last Admin: 08/15/17 09:29 Dose: 10 mg Ondansetron HCl (Zofran) 4 mg IV Q4HP PRN PRN Reason: Nausea And Vomiting Oxycodone HCl (Roxicodone) 5 mg PO Q4HP PRN PRN Reason: PAIN LEVEL 3-6 Last Admin: 08/15/17 09:29 Dose: 5 mg Pantoprazole Sodium (Protonix) 40 mg PO [facility] Patient Own Medication () 2 dose INH BID [facility] Last Admin: 08/14/17 20:32 Dose: 2 dose Potassium Chloride (Kdur) 10 meq PO [facility] Last Admin: 08/15/17 09:29 Dose: 10 meq Simvastatin (Zocor) 20 mg PO HS [facility] Last Admin: 08/14/17 20:31 Dose: 20 mg Sodium Chloride (Saline Flush) 10 ml IV Q8 [facility] Last Admin: 08/15/17 06:47 Dose: 10 ml Spironolactone (Aldactone) 50 mg PO DAILY [facility] Last Admin: 08/15/17 09:30 Dose: 50 mg Vancomycin HCl (Vancomycin Per Pharmacy) 1 order IV UD [facility] Medical - PN: A/P - Time Spent With Patient Total time spent is greater than 50% in coordination of care (as documented) at patient's floor/unit and/or counseling patient: - Narrative A/P Narrative: 71-year-old with the following problems: + Epigastric pain a/w nausea CT-abdomen / pelvis: anterior abdominal wall hernia repair with surgical mesh, mild patchy airway disease lower lobes, absent spleen. Radiographically suspicious for pneumonia, but not supported clinically (no coughing, fever, leukocytosis, no history of aspiration) DD GERD, pneumonia Check pro-calcitonin (sample in lab), IV protonix WBC 20's. 08/13 started on Vanco and ceftriaxone empirically 08/15: blood cultures neg. WBC down to 17. CXR improved + Exacerbation of COPD Had bronchospasm and inablity to complete sentences without gasping for air. Will give neb treatment + Morbid obesity + Obesity-hypoventilation syndrome Is on chronic oxygen Has DHARA, states is clautrophobic and wouldn't tolerate being on CPAP/BiPAP + DM Continue home regimen Poorly controlled with A1C8.5 In hospital low BS in am. Will decrease HS dose + HTN 08/15: start Losartan/HCTZ + HL + Asplenia (s/p splenectomy) + Leukocytosis on hospital day 3 Patient asplenic DD steroid effect vs infection. Will empirically start on Vanco and ceftriaxone 08/13 DVT prophylaxis: Lovenox Code status: full
[2017-08-15] MEDS: PATIENTS OWN MEDICATION 1 DOSE MISCELL INH SCH ×2 (10:22→21:42)
[2017-08-15] MEDS: guaiFENesin/DEXTROMETHORPHAN ORAL SOL PO PRN ×2 (12:33→21:29)
[2017-08-15] MEDS: SIMVASTATIN 20 MG TABLET PO SCH (21:30)
[2017-08-15] MEDS: AMITRIPTYLINE 10 MG TABLET PO SCH (21:30)
[2017-08-16] MEDS: CYCLOBENZAPRINE 10 MG TABLET PO PRN (00:01)
[2017-08-16] MEDS: IPRATROPIUM/ALBUTEROL 3 ML AMPUL.NEB NEB SCH ×4 (01:30→19:07)
[2017-08-16 06:19] LABS: Basophils # (Auto) 0 K/mcL (0.0-0.3); Basophils % (Auto) 0.2 % (0.0-2.0); Eosinophils # (Auto) 1.4 K/mcL (0.0-0.7); Eosinophils % (Auto) 9.5 % (0.0-7.0); Granulocytes % (Auto) 64.8 % (38.0-78.0); Lymphocytes # (Auto) 2.8 K/mcL (1.5-4.8); Lymphocytes % (Auto) 19.3 % (15.5-49.0); Mean Cell Volume 93.6 fL (80.0-100.0); Mean Corpuscular HGB Conc 32.9 g/dL (31.0-36.0); Mean Corpuscular Hemoglobin 30.8 pg (26.0-34.0); Monocytes # (Auto) 0.9 K/mcL (0.1-0.9); Monocytes % (Auto) 6.2 % (1.0-12.0); Platelet Count 325 K/mcL (140-440); RBC 4.28 M/mcL (4.00-5.20)
[2017-08-16] MEDS: 0.9 % SODIUM CHLORIDE 10 ML SYRINGE IV SCH ×3 (06:27→21:24)
[2017-08-16 06:41] LABS: ALT/SGPT 18 U/l (0-40); Albumin 3.4 gm/dL (3.2-5.2); Albumin/Globulin Ratio 1.1 (1.0-2.3); Alkaline Phosphatase 84 U/L (39-117); Bilirubin,Direct < 0.2 mg/dL (0.0-0.3); Blood Urea Nitrogen 19 mg/dl (8-23); Gamma Glutamyl Transpeptidase 128 U/L (5-36); Uric Acid 6.1 mg/dL (2.5-8.0)
[2017-08-16] MEDS: PANTOPRAZOLE 40 MG PACKET PO SCH (06:51)
[2017-08-16] MEDS: ACETAMINOPHEN 325 MG TABLET PO PRN ×3 (06:53→23:28)
[2017-08-16] MEDS: oxyCODONE HCL 5 MG TABLET PO PRN ×3 (06:54→23:27)
[2017-08-16] MEDS: INSULIN LISPRO 1 UNIT/0.01 ML UNIT SQ SCH ×5 (06:55→21:23)
[2017-08-16] MEDS: DOCUSATE SODIUM 100 MG CAPSULE PO SCH ×2 (08:25→21:23)
[2017-08-16] MEDS: cefTRIAXone 2 GM VIAL IV SCH (10:02)
[2017-08-16] MEDS: SPIRONOLACTONE 25 MG TABLET PO SCH (10:05)
[2017-08-16] MEDS: metFORMIN 500 MG TAB.XL.24H PO SCH ×2 (10:06→17:38)
[2017-08-16] MEDS: FUROSEMIDE 40 MG TABLET PO SCH ×2 (10:06→15:49)
[2017-08-16] MEDS: LOSARTAN 50 MG TABLET PO SCH (10:06)
[2017-08-16] MEDS: MONTELUKAST 10 MG TABLET PO SCH (10:07)
[2017-08-16] MEDS: CITALOPRAM 20 MG TABLET PO SCH (10:07)
[2017-08-16] MEDS: GABAPENTIN 300 MG CAPSULE PO SCH ×2 (10:07→21:24)
[2017-08-16] MEDS: POTASSIUM CHLORIDE 10 MEQ TABLET PO SCH (10:07)
[2017-08-16] MEDS: HYDROCHLOROTHIAZIDE 25 MG TABLET PO SCH (10:08)
[2017-08-16] MEDS: INSULIN GLARGINE, HUMAN 1 UNIT/0.01 ML SQ SCH ×2 (10:08→21:23)
[2017-08-16] MEDS: PATIENTS OWN MEDICATION 1 DOSE MISCELL INH SCH ×2 (10:09→21:29)
[2017-08-16] MEDS: ENOXAPARIN 40 MG/0.4 ML SYRINGE SQ SCH (10:09)
[2017-08-16] MEDS: ALBUTEROL SULFATE 1 PUFF INHALER IH PRN (10:10)
[2017-08-16] MEDS: VANCOMYCIN 1,500 MG in 0.9 % SODIUM CHLORIDE 500 ML IV SCH (10:57)
--- NOTE | 2017-08-16 13:06 | Internal Med Progress Note ---
Medical - PN: Subj Patient information: Note initiated : 08/16/17 at 12:59 pm Service Date, if different from initiated Date: [] Patient: Joelle Guadalupe a 71 y/o F admitted on 08/12/17 for N/V/D. Interval history: Admitted 08/12 with following problems: + Epigastric pain a/w nausea CT-abdomen / pelvis: anterior abdominal wall hernia repair with surgical mesh, mild patchy airway disease lower lobes, absent spleen. Radiographically suspicious for pneumonia, but not supported clinically (no coughing, fever, leukocytosis, no history of aspiration) DD GERD, pneumonia Check pro-calcitonin (sample in lab), IV protonix + Exacerbation of COPD Had bronchospasm and inablity to complete sentences without gasping for air. Will give neb treatment + Morbid obesity + Obesity-hypoventilation syndrome Is on chronic oxygen Has DHARA, states is clautrophobic and wouldn't tolerate being on CPAP/BiPAP + DM Continue home regimen + HL + Asplenia (s/p splenectomy) August 13: C/O epigastric pain and coughing. Up in chair. Tends to doze off. On 4L O2 sats 97-99%. Afebrile WBC up to 23. Probably steroid effect as she received 120 mg solumedrol in ED yesterday. However, patient is asplenic. Will treat empirically with Ceftriaxone and Vanco August 14: Afebrile. Cough and pain with coughing O2 sat on RA: 95%. Bloodsugars: 112-187 WBC 21, on Ceftriaxone and Vanco August 15. C/O back pain. Less coughing. Afebrile. I/O: -700 Weight down to 257 from 275 lb. WBC down to 17 from 22. CXR 08/14 showed marked improvement compared to 08/12. Cont current antibiotics. Lasix and Protonix to po Low am BS. Will decrease HS lantus High BPs. Start Losartan/HCTZ August 16: Still has an occasional cough a/w pleuritic pain. Less frequent. Afebrile. W down to 253 lb from 275 on admission 08/13 Max SBP: 157. Was starten on Losartan/HCTZ WBC down to 14.3 Continue empriic treatment for 'asplenic sepsis' with Vanco and Ceftriaxone till WBC normalized With infection under control and better diet: Less insulin requirement. Will increase Lasix for next few days to decrease pedal edema. Watch renal function closely. - Constitutional Vitals: Vital Signs Temp Pulse Resp BP Pulse Ox 96.6 F L 79 18 157/54 89 L 08/16/17 11:21 08/16/17 07:06 08/16/17 11:21 08/16/17 11:21 08/16/17 11:21 Period Temp Pulse Resp BP Sys/Coker Pulse Ox Last 24 Hr 96.6 F-98.2 F 76-88 16-20 147-180/54-87 89-96 Intake and Output 08/15/17 08/16/17 08/16/17 21:59 05:59 13:59 Intake Total 550 / 550 700 / 700 Output Total 151 / 151 301 / 301 Balance 399 / 399 399 / 399 Weight 253 lb 4.8 oz Intake & Output: Intake & Output 08/15/17 08/16/17 08/16/17 21:59 05:59 13:59 Intake Total 550 / 550 700 / 700 Output Total 151 / 151 301 / 301 Balance 399 / 399 399 / 399 Weight 253 lb 4.8 oz Intake: IV 500 / 500 Vancomycin 1,500 mg In Sodium 500 / 500 Chloride 0.9% 500 ml @ 333.3 mls/hr IV Q12H [facility] Rx#: [id number] Oral 50 / 50 700 / 700 Output: Void Amount 150 / 150 300 / 300 # of times incontinent of urine Other: Meal Dinner Lunch Percent of Meal Consumed 100% 100% Feeding Ability Independent # Voids 1 1 1 # Bowel Movements 1 General appearance: no acute distress, obese - Respiratory Respiratory exam: Present: rhonchi (at bases) - Cardiovascular Cardiovascular exam: Present: normal rate and rhythm - GI/Abdominal GI/Abdominal exam: Present: normal bowel sounds, soft - Extremities Exam Extremities exam: Present: pedal edema Medical - PN: Obj Da - Labs CBC & Chem 7: 08/16/17 04:27 08/16/17 04:27 Labs: Abnormal Lab Results 08/16/17 08/16/17 08/16/17 08:28 04:27 04:27 WBC 14.3 H RBC RDW 15.0 H Lymph % (Auto) Eos % (Auto) 9.5 H Gran # 9.2 H [place] # (Auto) Eos # (Auto) 1.4 H Carbon Dioxide 31 H BUN Glucose 57 L Phosphorus 4.6 H GGT 128 H Triglycerides 167 H Vancomycin Trough 21.4 H* 08/15/17 08/15/17 08/14/17 04:26 04:26 04:38 WBC 17.2 H RBC RDW 15.0 H Lymph % (Auto) Eos % (Auto) Gran # 12.1 H [place] # (Auto) Eos # (Auto) 1.1 H Carbon Dioxide BUN 24 H Glucose 47 L 108 H Phosphorus 2.5 L GGT 120 H 121 H Triglycerides 165 H Vancomycin Trough 08/14/17 04:38 WBC 21.7 H RBC 3.97 L RDW 15.3 H Lymph % (Auto) 13.7 L Eos % (Auto) Gran # 16.4 H [place] # (Auto) 1.2 H Eos # (Auto) 1.0 H Carbon Dioxide BUN Glucose Phosphorus GGT Triglycerides Vancomycin Trough Meds: Medications Acetaminophen (Tylenol) 975 mg PO Q6HP PRN PRN Reason: PAIN/FEVER > 101 Last Admin: 08/16/17 06:53 Dose: 975 mg Albuterol Sulfate (Ventolin) 1 puff IH Q4HP PRN PRN Reason: Shortness Of Breath Last Admin: 08/16/17 10:10 Dose: 1 puff Albuterol/Ipratropium (Duoneb) 3 ml NEB Q4HP PRN PRN Reason: Wheezing Albuterol/Ipratropium (Duoneb) 3 ml NEB Q6HRT [facility] Last Admin: 08/16/17 06:59 Dose: 3 ml Amitriptyline HCl (Elavil) 10 mg PO HS [facility] Last Admin: 08/15/17 21:30 Dose: 10 mg Ceftriaxone Sodium (Rocephin) 2 gm IV DAILY [facility] Last Admin: 08/16/17 10:02 Dose: 2 gm Citalopram Hydrobromide (Celexa) 40 mg PO DAILY [facility] Last Admin: 08/16/17 10:07 Dose: 40 mg Cyclobenzaprine HCl (Flexeril) 5 mg PO TIDP PRN PRN Reason: Muscle Pain Last Admin: 08/16/17 00:01 Dose: 5 mg Dextrose (Dextrose 50%) 0 ml IV UD PRN PRN Reason: Hypoglycemia Diagnostic Test (Pha) (Accu-Chek) 1 each FS ACHS [facility] Last Admin: 08/16/17 11:26 Dose: 1 each Docusate Sodium (Colace) 100 mg PO BID [facility] Last Admin: 08/16/17 08:25 Dose: Not Given Enoxaparin Sodium (Lovenox) 40 mg SQ DAILY [facility] Last Admin: 08/16/17 10:09 Dose: 40 mg Furosemide (Lasix) 40 mg PO BIDD [facility] Last Admin: 08/16/17 10:06 Dose: 40 mg Gabapentin (Neurontin) 300 mg PO BID [facility] Last Admin: 08/16/17 10:07 Dose: 300 mg Glucose (Insta-Glucose) 15 gm PO PRN PRN PRN Reason: Hypoglycemia Guaifenesin (Robitussin Dm) 10 ml PO Q4HP PRN PRN Reason: Cough Last Admin: 08/15/17 21:29 Dose: 10 ml Hydrochlorothiazide (Oretic) 25 mg PO DAILY [facility] Last Admin: 08/16/17 10:08 Dose: 25 mg Acetaminophen (Ofirmev) 1,000 mg in 100 mls @ 200 mls/hr IV Q6HP PRN PRN Reason: PAIN/FEVER > 101 Insulin Glargine (Lantus) 50 unit SQ BID [facility] Last Admin: 08/16/17 10:08 Dose: 50 unit Insulin Human Lispro (Humalog) [address] [facility] PRN Reason: Protocol Last Admin: 08/16/17 11:43 Dose: 6 unit Insulin Human Lispro (Humalog) 10 unit SQ DAILY [facility] Last Admin: 08/16/17 08:25 Dose: Not Given Losartan Potassium (Cozaar) 100 mg PO DAILY [facility] Last Admin: 08/16/17 10:06 Dose: 100 mg Magnesium Hydroxide (Milk Of Magnesia) 30 ml PO DAILYP PRN PRN Reason: Constipation Metformin HCl (Glucophage) 1,000 mg PO DAILY@1730 [facility] Last Admin: 08/15/17 17:30 Dose: 1,000 mg [facility] Last Admin: 08/16/17 10:06 Dose: 1,000 mg Montelukast Sodium (Singular) 10 mg PO DAILY [facility] Last Admin: 08/16/17 10:07 Dose: 10 mg Ondansetron HCl (Zofran) 4 mg IV Q4HP PRN PRN Reason: Nausea And Vomiting Oxycodone HCl (Roxicodone) 5 mg PO Q4HP PRN PRN Reason: PAIN LEVEL 3-6 Last Admin: 08/16/17 06:54 Dose: 5 mg Pantoprazole Sodium (Protonix) 40 mg PO QAMAC [facility] Last Admin: 08/16/17 06:51 Dose: 40 mg Patient Own Medication () 2 dose INH BID [facility] Last Admin: 08/16/17 10:09 Dose: 2 dose Potassium Chloride (Kdur) 10 meq PO QAMCC [facility] Last Admin: 08/16/17 10:07 Dose: 10 meq Simvastatin (Zocor) 20 mg PO HS [facility] Last Admin: 08/15/17 21:30 Dose: 20 mg Sodium Chloride (Saline Flush) 10 ml IV Q8 [facility] Last Admin: 08/16/17 06:27 Dose: Not Given Spironolactone (Aldactone) 50 mg PO DAILY [facility] Last Admin: 08/16/17 10:05 Dose: 50 mg Vancomycin HCl (Vancomycin Per Pharmacy) 1 order IV UD [facility] Medical - PN: A/P - Time Spent With Patient Total time spent is greater than 50% in coordination of care (as documented) at patient's floor/unit and/or counseling patient: - Narrative A/P Narrative: 71-year-old with the following problems: + Epigastric pain a/w nausea CT-abdomen / pelvis: anterior abdominal wall hernia repair with surgical mesh, mild patchy airway disease lower lobes, absent spleen. Radiographically suspicious for pneumonia, but not supported clinically (no coughing, fever, leukocytosis, no history of aspiration) DD GERD, pneumonia Check pro-calcitonin (sample in lab), IV protonix WBC 20's. 08/13 started on Vanco and ceftriaxone empirically 08/15: blood cultures neg. WBC down to 17. CXR improved + Exacerbation of COPD Had bronchospasm and inablity to complete sentences without gasping for air. Will give neb treatment + Morbid obesity + Obesity-hypoventilation syndrome Is on chronic oxygen Has DHARA, states is clautrophobic and wouldn't tolerate being on CPAP/BiPAP + DM Continue home regimen Poorly controlled with A1C8.5 In hospital low BS in am. Will decrease HS dose + HTN 08/15: start Losartan/HCTZ + HL + Asplenia (s/p splenectomy) + Leukocytosis on hospital day 2 Patient asplenic DD steroid effect vs infection. Will empirically start on Vanco and ceftriaxone 08/13 DVT prophylaxis: Lovenox Code status: full
[2017-08-16] MEDS: SIMVASTATIN 20 MG TABLET PO SCH (21:24)
[2017-08-16] MEDS: AMITRIPTYLINE 10 MG TABLET PO SCH (21:24)
[2017-08-17] MEDS: IPRATROPIUM/ALBUTEROL 3 ML AMPUL.NEB NEB SCH ×4 (01:08→18:54)
[2017-08-17] MEDS: 0.9 % SODIUM CHLORIDE 10 ML SYRINGE IV SCH ×3 (06:21→21:13)
[2017-08-17] MEDS: ACETAMINOPHEN 325 MG TABLET PO PRN ×3 (06:51→21:22)
[2017-08-17] MEDS: PANTOPRAZOLE 40 MG PACKET PO SCH (06:51)
[2017-08-17] MEDS: oxyCODONE HCL 5 MG TABLET PO PRN ×3 (06:51→21:23)
[2017-08-17] MEDS: INSULIN LISPRO 1 UNIT/0.01 ML UNIT SQ SCH ×5 (06:57→21:12)
[2017-08-17 07:45] LABS: Basophils # (Auto) 0 K/mcL (0.0-0.3); Basophils % (Auto) 0.1 % (0.0-2.0); Eosinophils # (Auto) 1.2 K/mcL (0.0-0.7); Eosinophils % (Auto) 8.6 % (0.0-7.0); Granulocytes % (Auto) 65.4 % (38.0-78.0); Lymphocytes # (Auto) 2.7 K/mcL (1.5-4.8); Lymphocytes % (Auto) 19.8 % (15.5-49.0); Mean Cell Volume 92.2 fL (80.0-100.0); Mean Corpuscular HGB Conc 33.2 g/dL (31.0-36.0); Mean Corpuscular Hemoglobin 30.6 pg (26.0-34.0); Monocytes # (Auto) 0.8 K/mcL (0.1-0.9); Monocytes % (Auto) 6.1 % (1.0-12.0); Platelet Count 318 K/mcL (140-440); RBC 4.82 M/mcL (4.00-5.20); Red Cell Distribution Width 15.1 % (11.5-14.5)
[2017-08-17 07:56] LABS: Vancomycin,Random 10.3 ug/mL
[2017-08-17 08:07] LABS: ALT/SGPT 85 U/l (0-40); Albumin 3.7 gm/dL (3.2-5.2); Alkaline Phosphatase 99 U/L (39-117); Bilirubin,Direct < 0.2 mg/dL (0.0-0.3); Blood Urea Nitrogen 23 mg/dl (8-23); Gamma Glutamyl Transpeptidase 261 U/L (5-36); Uric Acid 7.4 mg/dL (2.5-8.0)
[2017-08-17] MEDS ORDERED: VANCOMYCIN 1,500 MG in 0.9 % SODIUM CHLORIDE 500 ML IV ONE (09:00)
[2017-08-17] MEDS: POTASSIUM CHLORIDE 10 MEQ TABLET PO SCH (09:55)
[2017-08-17] MEDS: MONTELUKAST 10 MG TABLET PO SCH (09:56)
[2017-08-17] MEDS: GABAPENTIN 300 MG CAPSULE PO SCH ×2 (09:57→21:14)
[2017-08-17] MEDS: DOCUSATE SODIUM 100 MG CAPSULE PO SCH ×2 (09:58→21:13)
[2017-08-17] MEDS: CITALOPRAM 20 MG TABLET PO SCH (09:59)
[2017-08-17] MEDS: metFORMIN 500 MG TAB.XL.24H PO SCH ×2 (10:00→18:04)
[2017-08-17] MEDS: ENOXAPARIN 40 MG/0.4 ML SYRINGE SQ SCH (10:01)
[2017-08-17] MEDS: cefTRIAXone 2 GM VIAL IV SCH (10:02)
[2017-08-17] MEDS: INSULIN GLARGINE, HUMAN 1 UNIT/0.01 ML SQ SCH ×2 (10:09→21:12)
[2017-08-17] MEDS: PATIENTS OWN MEDICATION 1 DOSE MISCELL INH SCH ×3 (10:14→21:13)
[2017-08-17] MEDS: SPIRONOLACTONE 25 MG TABLET PO SCH (10:29)
[2017-08-17] MEDS: FUROSEMIDE 40 MG TABLET PO SCH ×2 (10:29→16:21)
[2017-08-17] MEDS: LOSARTAN 50 MG TABLET PO SCH (10:38)
[2017-08-17] MEDS: HYDROCHLOROTHIAZIDE 25 MG TABLET PO SCH (10:38)
--- NOTE | 2017-08-17 20:45 | Internal Med Progress Note ---
Medical - PN: Subj Patient information: Note initiated : 08/17/17 at 8:42 pm Service Date, if different from initiated Date: [] Patient: Joelle Guadalupe 71 y/o F admitted on 08/12/17 for N/V/D. Chief Complaint: [abdominal pain and SOB] Interval history: Admitted 08/12 with following problems: + Epigastric pain a/w nausea CT-abdomen / pelvis: anterior abdominal wall hernia repair with surgical mesh, mild patchy airway disease lower lobes, absent spleen. Radiographically suspicious for pneumonia, but not supported clinically (no coughing, fever, leukocytosis, no history of aspiration) DD GERD, pneumonia Check pro-calcitonin (sample in lab), IV protonix + Exacerbation of COPD Had bronchospasm and inablity to complete sentences without gasping for air. Will give neb treatment + Morbid obesity + Obesity-hypoventilation syndrome Is on chronic oxygen Has DHARA, states is clautrophobic and wouldn't tolerate being on CPAP/BiPAP + DM Continue home regimen + HL + Asplenia (s/p splenectomy) August 13: C/O epigastric pain and coughing. Up in chair. Tends to doze off. On 4L O2 sats 97-99%. Afebrile WBC up to 23. Probably steroid effect as she received 120 mg solumedrol in ED yesterday. However, patient is asplenic. Will treat empirically with Ceftriaxone and Vanco August 14: Afebrile. Cough and pain with coughing O2 sat on RA: 95%. Bloodsugars: 112-187 WBC 21, on Ceftriaxone and Vanco August 15. C/O back pain. Less coughing. Afebrile. I/O: -700 Weight down to 257 from 275 lb. WBC down to 17 from 22. CXR 08/14 showed marked improvement compared to 08/12. Cont current antibiotics. Lasix and Protonix to po Low am BS. Will decrease HS lantus High BPs. Start Losartan/HCTZ August 16: Still has an occasional cough a/w pleuritic pain. Less frequent. Afebrile. W down to 253 lb from 275 on admission 08/13 Max SBP: 157. Was starten on Losartan/HCTZ WBC down to 14.3 Continue empriic treatment for 'asplenic sepsis' with Vanco and Ceftriaxone till WBC normalized With infection under control and better diet: Less insulin requirement. Will increase Lasix for next few days to decrease pedal edema. Watch renal function closely. August 17: Still coughing, but less. Weight down 30 lb in 4 days Insulin need down from 150 Units to 100 units daily. Diabetic education today. WBC trending down Tentative discharge home in am. - Constitutional Vitals: Vital Signs Temp Pulse Resp BP Pulse Ox 97.7 F 101 H 16 107/71 84 L 08/17/17 16:00 08/17/17 19:00 08/17/17 19:00 08/17/17 16:00 08/17/17 16:00 Period Temp Pulse Resp BP Sys/Coker Pulse Ox Last 24 Hr 97.7 F-98.3 F 86-103 16-20 107-146/69-77 84-94 Intake and Output 08/17/17 08/17/17 08/17/17 05:59 13:59 21:59 Intake Total 200 / 200 575 / 575 Output Total 250 / 250 475 / 475 Balance -50 / -50 575 / 575 -475 / -475 Weight 246 lb 8 oz 246 lb 8 oz Patient Weight 08/18/17 05:59 Weight 246 lb 8 oz Intake & Output: Intake & Output 08/17/17 08/17/17 08/17/17 05:59 13:59 21:59 Intake Total 200 / 200 575 / 575 Output Total 250 / 250 475 / 475 Balance -50 / -50 575 / 575 -475 / -475 Weight 246 lb 8 oz 246 lb 8 oz Intake: Oral 200 / 200 575 / 575 Output: Void Amount 250 / 250 475 / 475 Other: Meal Lunch Percent of Meal Consumed 100% Feeding Ability Independent # Voids 1 1 General appearance: no acute distress - Respiratory Respiratory exam: Present: normal respiratory exam - Cardiovascular Cardiovascular exam: Present: normal rate and rhythm - GI/Abdominal GI/Abdominal exam: Present: normal bowel sounds - Extremities Exam Extremities exam: Present: pedal edema (less edematous) Medical - PN: Obj Da - Labs CBC & Chem 7: 08/17/17 06:33 08/17/17 06:33 Labs: Abnormal Lab Results 08/17/17 08/17/17 08/16/17 06:33 06:33 08:28 WBC 13.6 H RDW 15.1 H Eos % (Auto) 8.6 H Gran # 8.9 H Eos # (Auto) 1.2 H Chloride 94 L Carbon Dioxide 31 H Glucose Phosphorus 5.3 H GGT 261 H AST 145 H ALT 85 H Lactate Dehydrogenase 279 H Globulin 3.8 H Triglycerides 179 H Vancomycin Trough 21.4 H* 08/16/17 08/16/17 08/15/17 04:27 04:27 04:26 WBC 14.3 H RDW 15.0 H Eos % (Auto) 9.5 H Gran # 9.2 H Eos # (Auto) 1.4 H Chloride Carbon Dioxide 31 H Glucose 57 L 47 L Phosphorus 4.6 H GGT 128 H 120 H AST ALT Lactate Dehydrogenase Globulin Triglycerides 167 H 165 H Vancomycin Trough 08/15/17 04:26 WBC 17.2 H RDW 15.0 H Eos % (Auto) Gran # 12.1 H Eos # (Auto) 1.1 H Chloride Carbon Dioxide Glucose Phosphorus GGT AST ALT Lactate Dehydrogenase Globulin Triglycerides Vancomycin Trough Meds: Medications Acetaminophen (Tylenol) 975 mg PO Q6HP PRN PRN Reason: PAIN/FEVER > 101 Last Admin: 08/17/17 12:33 Dose: 975 mg Albuterol Sulfate (Ventolin) 1 puff IH Q4HP PRN PRN Reason: Shortness Of Breath Last Admin: 08/16/17 10:10 Dose: 1 puff Albuterol/Ipratropium (Duoneb) 3 ml NEB Q4HP PRN PRN Reason: Wheezing Albuterol/Ipratropium (Duoneb) 3 ml NEB Q6HRT [facility] Last Admin: 08/17/17 18:54 Dose: 3 ml Amitriptyline HCl (Elavil) 10 mg PO [facility] Last Admin: 08/16/17 21:24 Dose: 10 mg Amoxicillin/Clavulanate [facility]assium ([facility]in) [facility] Citalopram Hydrobromide (Celexa) 40 mg PO DAILY [facility] Last Admin: 08/17/17 09:59 Dose: 40 mg Cyclobenzaprine HCl (Flexeril) 5 mg PO TIDP PRN PRN Reason: Muscle Pain Last Admin: 08/16/17 00:01 Dose: 5 mg Dextrose (Dextrose 50%) 0 ml IV UD PRN PRN Reason: Hypoglycemia Diagnostic Test (Pha) (Accu-Chek) 1 each FS ACHS [facility] Last Admin: 08/17/17 16:45 Dose: 1 each Docusate Sodium (Colace) 100 mg PO BID [facility] Last Admin: 08/17/17 09:58 Dose: 100 mg Enoxaparin Sodium (Lovenox) 40 mg SQ DAILY [facility] Last Admin: 08/17/17 10:01 Dose: 40 mg Furosemide (Lasix) 40 mg PO BIDD [facility] Last Admin: 08/17/17 16:21 Dose: 40 mg Gabapentin (Neurontin) 300 mg PO BID [facility] Last Admin: 08/17/17 09:57 Dose: 300 mg Glucose (Insta-Glucose) 15 gm PO PRN PRN PRN Reason: Hypoglycemia Guaifenesin (Robitussin Dm) 10 ml PO Q4HP PRN PRN Reason: Cough Last Admin: 08/15/17 21:29 Dose: 10 ml Acetaminophen (Ofirmev) 1,000 mg in 100 mls @ 200 mls/hr IV Q6HP PRN PRN Reason: PAIN/FEVER > 101 Insulin Glargine (Lantus) 50 unit SQ BID [facility] Last Admin: 08/17/17 10:09 Dose: 50 unit Insulin Human Lispro (Humalog) 0 unit SQ [facility] PRN Reason: Protocol Last Admin: 08/17/17 18:04 Dose: 6 unit Insulin Human Lispro (Humalog) 10 unit SQ DAILY [facility] Last Admin: 08/17/17 10:52 Dose: Not Given Losartan Potassium (Cozaar) 100 mg PO DAILY [facility] Last Admin: 08/17/17 10:38 Dose: Not Given Magnesium Hydroxide (Milk Of Magnesia) 30 ml PO DAILYP PRN PRN Reason: Constipation Metformin HCl (Glucophage) 1,000 mg PO DAILY@1730 [facility] Last Admin: 08/17/17 18:04 Dose: 1,000 mg Metformin HCl (Glucophage) [facility] Last Admin: 08/17/17 10:00 Dose: 1,000 mg Montelukast Sodium (Singular) 10 mg PO DAILY [facility] Last Admin: 08/17/17 09:56 Dose: 10 mg Ondansetron HCl (Zofran) 4 mg IV Q4HP PRN PRN Reason: Nausea And Vomiting Oxycodone HCl (Roxicodone) 5 mg PO Q4HP PRN PRN Reason: PAIN LEVEL 3-6 Last Admin: 08/17/17 12:33 Dose: 5 mg Pantoprazole Sodium (Protonix) 40 mg PO QAMAC [facility] Last Admin: 08/17/17 06:51 Dose: 40 mg Patient Own Medication () 2 dose INH BID [facility] Last Admin: 08/17/17 12:30 Dose: 2 dose Potassium Chloride (Kdur) 10 meq PO QAMCC [facility] Last Admin: 08/17/17 09:55 Dose: 10 meq Simvastatin (Zocor) 20 mg PO HS [facility] Last Admin: 08/16/17 21:24 Dose: 20 mg Sodium Chloride (Saline Flush) 10 ml IV Q8 [facility] Last Admin: 08/17/17 16:21 Dose: 10 ml Spironolactone (Aldactone) 50 mg PO DAILY [facility] Last Admin: 08/17/17 10:29 Dose: 50 mg Medical - PN: A/P - Time Spent With Patient Total time spent is greater than 50% in coordination of care (as documented) at patient's floor/unit and/or counseling patient: - Narrative A/P Narrative: 71-year-old with the following problems: + Epigastric pain a/w nausea CT-abdomen / pelvis: anterior abdominal wall hernia repair with surgical mesh, mild patchy airway disease lower lobes, absent spleen. Radiographically suspicious for pneumonia, but not supported clinically (no coughing, fever, leukocytosis, no history of aspiration) DD GERD, pneumonia Check pro-calcitonin (sample in lab), IV protonix WBC 20's. 08/13 started on Vanco and ceftriaxone empirically 08/15: blood cultures neg. WBC down to 17. CXR improved + Exacerbation of COPD Had bronchospasm and inablity to complete sentences without gasping for air. Will give neb treatment + Morbid obesity + Obesity-hypoventilation syndrome Is on chronic oxygen Has DHARA, states is clautrophobic and wouldn't tolerate being on CPAP/BiPAP + DM Continue home regimen Poorly controlled with A1C8.5 In hospital low BS in am. Will decrease HS dose + HTN 08/15: start Losartan + HL + Asplenia (s/p splenectomy) + Leukocytosis on hospital day 2 Patient asplenic DD steroid effect vs infection. empirically started on Vanco and ceftriaxone 08/13 Improving leukocytosis DVT prophylaxis: Lovenox Code status: full
[2017-08-17] MEDS: SIMVASTATIN 20 MG TABLET PO SCH (21:13)
[2017-08-17] MEDS: AMITRIPTYLINE 10 MG TABLET PO SCH (21:14)
[2017-08-17] MEDS: guaiFENesin/DEXTROMETHORPHAN ORAL SOL PO PRN (22:10)
[2017-08-18] MEDS: IPRATROPIUM/ALBUTEROL 3 ML AMPUL.NEB NEB SCH ×2 (00:41→07:41)
[2017-08-18] MEDS: ACETAMINOPHEN 325 MG TABLET PO PRN (02:59)
[2017-08-18] MEDS: oxyCODONE HCL 5 MG TABLET PO PRN (02:59)
[2017-08-18 06:02] LABS: Basophils # (Auto) 0 K/mcL (0.0-0.3); Basophils % (Auto) 0.3 % (0.0-2.0); Eosinophils # (Auto) 1.1 K/mcL (0.0-0.7); Eosinophils % (Auto) 7.3 % (0.0-7.0); Granulocytes % (Auto) 68.8 % (38.0-78.0); Lymphocytes # (Auto) 2.8 K/mcL (1.5-4.8); Lymphocytes % (Auto) 18.1 % (15.5-49.0); Mean Cell Volume 93.9 fL (80.0-100.0); Mean Corpuscular HGB Conc 32.5 g/dL (31.0-36.0); Mean Corpuscular Hemoglobin 30.5 pg (26.0-34.0); Monocytes # (Auto) 0.8 K/mcL (0.1-0.9); Monocytes % (Auto) 5.5 % (1.0-12.0); Platelet Count 333 K/mcL (140-440); RBC 4.65 M/mcL (4.00-5.20)
[2017-08-18 06:54] LABS: ALT/SGPT 66 U/l (0-40); Albumin 3.8 gm/dL (3.2-5.2); Albumin/Globulin Ratio 1.1 (1.0-2.3); Alkaline Phosphatase 100 U/L (39-117); Bilirubin,Direct < 0.2 mg/dL (0.0-0.3); Blood Urea Nitrogen 33 mg/dl (8-23); Gamma Glutamyl Transpeptidase 264 U/L (5-36); Uric Acid 8.5 mg/dL (2.5-8.0)
[2017-08-18] MEDS: 0.9 % SODIUM CHLORIDE 10 ML SYRINGE IV SCH (07:27)
[2017-08-18] MEDS: INSULIN LISPRO 1 UNIT/0.01 ML UNIT SQ SCH ×3 (07:33→11:52)
[2017-08-18] MEDS: PANTOPRAZOLE 40 MG PACKET PO SCH (07:35)
[2017-08-18] MEDS ORDERED: AMOXICILLIN/POTASSIUM CLAV 875 MG TABLET PO SCH (08:00)
[2017-08-18] MEDS: FUROSEMIDE 40 MG TABLET PO SCH (08:22)
[2017-08-18] MEDS: MONTELUKAST 10 MG TABLET PO SCH (08:22)
[2017-08-18] MEDS: CITALOPRAM 20 MG TABLET PO SCH (08:23)
[2017-08-18] MEDS: POTASSIUM CHLORIDE 10 MEQ TABLET PO SCH (08:23)
--- NOTE | 2017-08-18 08:23 | XRay Report ---
CLINICAL INFORMATION: Follow pneumonia COMPARISON: 08/14/2017 FINDINGS: Heart size and mediastinum are normal. Pulmonary vessels have returned to normal in caliber. No edema. Right lung base has cleared on today's study with small residual infiltrate seen in the posterior left lower lobe. Small persistent left pleural effusion noted IMPRESSION: 1. Interval resolution CHF 2. Interval resolution in right lower lobe infiltrate 3. Marked improvement in left lower lobe infiltrate with small residual pneumonia with small effusion Interpreted and Authenticated by: Chris Sanderson 08/18/17
[2017-08-18] MEDS: DOCUSATE SODIUM 100 MG CAPSULE PO SCH (08:24)
[2017-08-18] MEDS: metFORMIN 500 MG TAB.XL.24H PO SCH (08:24)
[2017-08-18] MEDS: GABAPENTIN 300 MG CAPSULE PO SCH (08:24)
[2017-08-18] MEDS: SPIRONOLACTONE 25 MG TABLET PO SCH (08:24)
[2017-08-18] MEDS: INSULIN GLARGINE, HUMAN 1 UNIT/0.01 ML SQ SCH (08:25)
[2017-08-18] MEDS: PATIENTS OWN MEDICATION 1 DOSE MISCELL INH SCH (08:25)
[2017-08-18] MEDS: guaiFENesin/DEXTROMETHORPHAN ORAL SOL PO PRN (08:26)
[2017-08-18] MEDS: ALBUTEROL SULFATE 1 PUFF INHALER IH PRN (08:27)
[2017-08-18] MEDS ORDERED: LEVOFLOXACIN 750 MG TABLET PO SCH (09:00)
[2017-08-18] MEDS ORDERED: METOPROLOL SUCCINATE 25 MG TAB.XL.24H PO SCH (09:00)
[2017-08-18] MEDS ORDERED: LOSARTAN 50 MG TABLET PO SCH (09:00)
[2017-08-18] MEDS: ENOXAPARIN 40 MG/0.4 ML SYRINGE SQ SCH (09:46)
--- NOTE | 2017-08-18 10:20 | Discharge Summary ---
Medical - DS: Prov Patient information: Note initiated : 08/18/17 at 9:50 am Service Date, if different from initiated Date: [] Patient: Joelle Guadalupe a 71 y/o F admitted on 08/12/17 for N/V/D. History of present illness: Ms. Guadalupe is a 71 year old F, who presented with acute onset of epigastric pain associated with severe nausea, but no nausea. Patient has chronic diarrhea without change in bowel pattern. She denies fever, chills, coughing or CP. At baseline she is short of breath with minimal exertion and sleeps in a recliner chair. She has episodic wheezing and chronic pedal edema. She was last admitted to [facility] [place] with exacerbation of COPD about one year ago. Patient had difficulty staying awake during H/P. She admits to having the tendency of falling asleep during daytime In ED: Given Dilaudid, phenergan, solumedrol, neb treatment, ceftriaxone, levofloxacin Had CXR and CT-abdomen/pelvis done Date of admission: 08/12/17 17:45 Discharge date: 08/18/17 Primary care physician: Ayleen Gerard Consults: 08/12/17 16:48 Consult to Physician [CONS] Stat Comment: Consulting Provider: Edward White Reason For Exam: Physician to Consult Medical - DS: Meds - Discharge Medications Prescriptions: Amoxicillin/Potassium Clav [Augmentin] 875 mg PO BIDCC #14 tablet guaiFENesin/DEXTROMETHORPHAN [Robitussin Dm] 10 ml PO Q4HP PRN #180 ml PRN Reason: Cough Insulin Detemir [Levemir Flextouch] 50 unit SQ DAILY 90 Days #1 insuln.pen Losartan [Cozaar] 25 mg PO DAILY #90 tablet Metoprolol Succinate [Toprol Xl] 50 mg PO DAILY #90 tab.xl.24h Active and Home Medications: Home Medications Albuterol Sulfate [Proair Hfa] 8.5 gm IH Q4 PRN 12/09/14 [History Confirmed Last Taken Unknown] Amitriptyline [Elavil] 10 mg PO HS 12/09/14 [History Confirmed 08/12/17 Last Taken Unknown] Budesonide/Formoterol Fumarate [Symbicort 80-4.5 Mcg Inhaler] 10.2 gm IH BID [History Confirmed 08/12/17 Last Taken Unknown] Citalopram [Celexa] 40 mg PO DAILY 12/09/14 [History Confirmed 08/12/17 Last Taken Unknown] Cyclobenzaprine [Flexeril] 5 mg PO TIDP PRN #20 tablet 12/09/14 [Rx Confirmed Last Taken Unknown] Furosemide [Lasix] 40 mg PO DAILY 12/09/14 [History Confirmed 08/12/17 Last Taken Unknown] Gabapentin [Neurontin] 300 mg PO BID 12/09/14 [History Confirmed 08/12/17 Last Taken Unknown] Insulin Aspart [Novolog Flexpen] 10 unit SQ DAILY 12/09/14 [History Confirmed Last Taken Unknown] Insulin Detemir [Levemir Flextouch] 60 unit SQ DAILY 12/09/14 [History Confirmed 08/12/17 Last Taken Unknown] Insulin Detemir [Levemir Flextouch] 90 unit SQ HS 12/09/14 [History Confirmed Last Taken Unknown] Ipratropium/Albuterol [Duoneb] 3 ml NEB Q6HRT 12/09/14 [History Confirmed Last Taken Unknown] Montelukast Sodium [Singulair] 10 mg PO DAILY 12/09/14 [History Confirmed Last Taken Unknown] Potassium Chloride [Klor-Con M10] 10 meq PO DAILY 12/09/14 [History Confirmed Last Taken Unknown] Simvastatin [Zocor] 20 mg PO HS 12/09/14 [History Confirmed 08/12/17 Last Taken Unknown] Spironolactone [Aldactone] 50 mg PO DAILY 12/09/14 [History Confirmed 08/12/17 Last Taken Unknown] metFORMIN HCL [Fortamet] 1,000 mg PO BID 12/09/14 [History Confirmed 08/12/17 Last Taken Unknown] Medical - DS: Hosp Hospital course: Mr. Guadalupe is a 71 year old F Admitted 08/12 with following problems: + Epigastric pain a/w nausea CT-abdomen / pelvis: anterior abdominal wall hernia repair with surgical mesh, mild patchy airway disease lower lobes, absent spleen. Radiographically suspicious for pneumonia, but not supported clinically (no coughing, fever, leukocytosis, no history of aspiration) DD GERD, pneumonia Check pro-calcitonin (sample in lab), IV protonix + Exacerbation of COPD Had bronchospasm and inablity to complete sentences without gasping for air. Will give neb treatment + Morbid obesity + Obesity-hypoventilation syndrome Is on chronic oxygen Has DHARA, states is clautrophobic and wouldn't tolerate being on CPAP/BiPAP + DM Continue home regimen + HL + Asplenia (s/p splenectomy) August 13: C/O epigastric pain and coughing. Up in chair. Tends to doze off. On 4L O2 sats 97-99%. Afebrile WBC up to 23. Probably steroid effect as she received 120 mg solumedrol in ED yesterday. However, patient is asplenic. Will treat empirically with Ceftriaxone and Vanco August 14: Afebrile. Cough and pain with coughing O2 sat on RA: 95%. Bloodsugars: 112-187 WBC 21, on Ceftriaxone and Vanco August 15. C/O back pain. Less coughing. Afebrile. I/O: -700 Weight down to 257 from 275 lb. WBC down to 17 from 22. CXR 08/14 showed marked improvement compared to 08/12. Cont current antibiotics. Lasix and Protonix to po Low am BS. Will decrease HS lantus High BPs. Start Losartan/HCTZ August 16: Still has an occasional cough a/w pleuritic pain. Less frequent. Afebrile. W down to 253 lb from 275 on admission 08/13 Max SBP: 157. Was starten on Losartan/HCTZ WBC down to 14.3 Continue empriic treatment for 'asplenic sepsis' with Vanco and Ceftriaxone till WBC normalized With infection under control and better diet: Less insulin requirement. Will increase Lasix for next few days to decrease pedal edema. Watch renal function closely. August 17: Still coughing, but less. Weight down 30 lb in 4 days Insulin need down from 150 Units to 100 units daily. Diabetic education today. WBC trending down Tentative discharge home in am. August 18: Afebrile Still coughing, but breathing better. CXR: resolution of pneumonia Patient feeling well and agrees with plan to go home (with home health). Lost 30 lbs during admission. W: 246 lb on discharge. Insulin need 50 units per day less. Recommendations include: 1. Augmentin continue for one week (for pneumonia) 2. Detemir reduced to 50 Units twice daily (down from 60 and 90 Units) Check blood sugars 2-4 times daily and record. May need adjustment 3. Metoprolol added for fast HR 100-110 4. Losartan added for HTN 5. Daily weight. Today weight: 247 lb. Notify PCP if more than 1 lb per day weight gain for few days Discharge diagnosis: Pneumonia Secondary discharge diagnosis: COPD Morbid obesity probable DHARA. On nocturnal oxygen Type 2 DM Hyperlipidemia Asplenia Reason for admission: abdominal pain Pertinent studies/significant findings: CT-ABDOMEN/PELVIS: IMPRESSION: 1. Anterior abdominal wall hernia repair with surgical mesh. There may be separation of the right mesh from the in the anterior abdominal wall musculature. No evidence recurrent hernia. 2. 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 This has progressed slightly from the [address] 3. Mild patchy airspace disease in both inferior lower lobes, right middle lobe and lingula is likely atelectasis or scar. If there is clinical support for pneumonia, suggest short-term radiographic follow-up. 4. Mild hyperplasia or diffuse adenoma of the left adrenal gland - stable 5. Diminutive spleen. Suspect patient has had a splenectomy and there is hypertrophy of residual splenules. There are surgical clips in this region CXR 2 view 08/18/2017 upon discharge: IMPRESSION: 1. Interval resolution CHF 2. Interval resolution in right lower lobe infiltrate 3. Marked improvement in left lower lobe infiltrate with small residual pneumonia with small effusion - Time Spent with Patient Total time spent providing and/or coordinating discharge services: Greater than 30 minutes Medical - DS: Exam - Constitutional Vitals: Vital Signs Temp Pulse Pulse Resp BP BP Pulse Ox 08/18/17 08:00 96.8 F L 105 H 16 133/69 88 L 08/18/17 07:35 90 18 08/18/17 03:00 97.4 F 92 H 16 108/61 92 08/18/17 00:00 97.9 F 125 H 18 137/74 92 08/17/17 20:00 98.0 F 108 H 16 164/62 91 08/17/17 19:00 101 H 16 08/17/17 16:00 97.7 F 101 H 18 107/71 84 L 08/17/17 13:30 103 H 16 08/17/17 13:25 92 08/17/17 11:46 97.9 F 86 16 117/72 92 Intake and Output 08/17/17 08/18/17 08/18/17 21:59 05:59 13:59 Intake Total 465 / 465 275 / 275 360 / 360 Output Total 1650 / 1650 Balance -1185 / -1185 275 / 275 360 / 360 Intake: Oral 465 / 465 275 / 275 360 / 360 Output: Void Amount 1650 / 1650 Other: Meal milk Breakfast Percent of Meal Consumed 100% 100% Feeding Ability Independent Assist with Tray Set Up # Voids 1 1 Weight 246 lb 8 oz General appearance: no acute distress, obese - Respiratory Respiratory exam: Present: normal respiratory exam - Cardiovascular Cardiovascular exam: Present: normal rate and rhythm - GI/Abdominal GI/Abdominal exam: Present: normal bowel sounds, soft - Extremities Exam Extremities exam: Present: pedal edema Additional comments: much improved Medical - DS: Data Labs on day of discharge: Labs from last 24 hours 08/18/17 08/18/17 04:20 04:20 WBC 15.3 H RBC 4.65 Hgb 14.2 Hct 43.6 MCV 93.9 MCH 30.5 MCHC 32.5 RDW 15.0 H Plt Count 333 MPV 9.7 Gran % 68.8 Lymph % (Auto) 18.1 [place] % (Auto) 5.5 Eos % (Auto) 7.3 H Baso % (Auto) 0.3 Gran # 10.5 H Lymph # (Auto) 2.8 [place] # (Auto) 0.8 Eos # (Auto) 1.1 H Baso # (Auto) 0 Sodium 142 Potassium 4.3 Chloride 95 L Carbon Dioxide 32 H Anion Gap 15.0 BUN 33 H Creatinine 1.0 GFR Calculation 57 Glucose 114 H Uric Acid 8.5 H Calcium 9.9 Phosphorus 4.1 Magnesium 1.7 Total Bilirubin 0.2 Direct Bilirubin < 0.2 GGT 264 H AST 50 H ALT 66 H Alkaline Phosphatase 100 Lactate Dehydrogenase 202 Total Protein 7.3 Albumin 3.8 Globulin 3.5 Albumin/Globulin Ratio 1.1 Triglycerides 205 H Medical - DS: A/P - Patient/Caregiver Discharge Instructions Activity: increase activity as tolerated Diet: Consistent Carbohydrate Additional Instructions: Recommendations include: 1. Augmentin continue for one week (for pneumonia) 2. Detemir reduced to 50 Units twice daily (down from 60 and 90 Units) Check blood sugars 2-4 times daily and record. May need adjustment 3. Metoprolol added for fast HR 100-110 4. Losartan added for HTN 5. Weigh daily. today's weight 247 lbs. Notify provider with drastic changes ( 1lb per day x 3 days, or more) - Follow up Plan Follow up with: Ayleen Gerard MD [Primary Care Provider] - Disposition: Home Health Service Prognosis: Fair Rehab Potential: Fair Overall status at discharge: patient is back to baseline
== END 2017-08-18 13:50 | disposition home health service (06) | DRG 190 ==
LOC: ED 13:03 → ICU 17:45 → MEDSUR 08-14 12:10
PROVIDERS: ADMIT Specialist; ATTEND Specialist

== ENCOUNTER 2017-10-19 12:17 | Inpatient (IN) ==
[2017-10-19] MEDS ORDERED: LACTATED RINGERS 1,000 ML IV ONE (12:29)
[2017-10-19] MEDS ORDERED: IPRATROPIUM/ALBUTEROL 3 ML AMPUL.NEB NEB ONE ×2 (12:32→19:30)
--- NOTE | 2017-10-19 12:32 | Emergency Department Note ---
General Adult HPI - General Chief complaint: Chest Pain Stated complaint: chest pain/shortness of breath Time Seen by Provider: 10/19/17 12:27 Source: patient Mode of arrival: ambulatory Limitations: no limitations - History of Present Illness HPI Narrative: This patient has had a cough for a week and feels like she has pneumonia. She is bringing up some yellow phlegm. She is having pain in her chest and back from coughing and breathing. No nausea or vomiting. She does feel thirsty and dehydrated. She does feel like she should stay in the hospital. Her O2 saturation is in the mid to high 80s on room air. - Related Data Home Medications Medication Instructions Recorded Confirmed Albuterol Sulfate [Proair Hfa] 8.5 gm IH Q4 PRN 12/09/14 08/12/17 Amitriptyline [Elavil] 10 mg PO HS 12/09/14 08/12/17 Budesonide/Formoterol Fumarate 10.2 gm IH BID 12/09/14 08/12/17 [Symbicort 80-4.5 Mcg Inhaler] Citalopram [Celexa] 40 mg PO DAILY 12/09/14 08/12/17 Gabapentin [Neurontin] 300 mg PO BID 12/09/14 08/12/17 Insulin Aspart [Novolog Flexpen] 10 unit SQ DAILY 12/09/14 08/12/17 Ipratropium/Albuterol [Duoneb] 3 ml NEB Q6HRT 12/09/14 08/12/17 Montelukast Sodium [Singulair] 10 mg PO DAILY 12/09/14 08/12/17 Potassium Chloride [Klor-Con M10] 10 meq PO DAILY 12/09/14 08/12/17 Simvastatin [Zocor] 20 mg PO HS 12/09/14 08/12/17 Spironolactone [Aldactone] 50 mg PO DAILY 12/09/14 08/12/17 metFORMIN HCL [Fortamet] 1,000 mg PO BID 12/09/14 08/12/17 Previous Rx's Medication Instructions Recorded Cyclobenzaprine [Flexeril] 5 mg PO TIDP PRN #20 tablet 12/09/14 Accu-Chek 1 each FS ACHS strip 08/18/17 Acetaminophen [Tylenol] 975 mg PO Q6HP PRN tablet 08/18/17 Clindamycin [Cleocin] 300 mg PO TID 5 Days #15 capsule 08/18/17 Furosemide [Lasix] 40 mg PO BIDD tablet 08/18/17 Insulin Detemir [Levemir Flextouch] 50 unit SQ DAILY 90 Days #1 08/18/17 insuln.pen Losartan [Cozaar] 25 mg PO DAILY #90 tablet 08/18/17 Metoprolol Succinate [Toprol Xl] 50 mg PO DAILY #90 tab.xl.24h 08/18/17 Pantoprazole [Protonix] 40 mg PO DAILY #90 tablet 08/18/17 guaiFENesin/DEXTROMETHORPHAN 10 ml PO Q4HP PRN #180 ml 08/18/17 [Robitussin Dm] Allergies Allergy/AdvReac Type Severity Reaction Status Date / Time Sulfa (Sulfonamide Allergy Severe Hives Verified 10/19/17 12:19 Antibiotics) codeine AdvReac Intermediate Migraine Verified 10/19/17 12:19 Metolazone AdvReac Intermediate Migraine Verified 10/19/17 12:19 morphine AdvReac Intermediate Migraine Verified 10/19/17 12:19 Pneumococcal Vaccine AdvReac Intermediate Migraine Verified 10/19/17 12:19 Past Medical History - Past Medical History [facility] Narrative: Medical History Shoulder bursitis (Acute) Medical history: Reports: COPD, peripheral artery disease Surgical history ED: Reports: non-contributory - Social History smoking status: Current every day smoker Alcohol use: Reports: Unknown Drug use: Reports: none Physical Exam Limitations: no limitations General appearance: alert Head: atraumatic Eye: Present: normal appearance ENT: mucous membranes dry Neck: Present: normal inspection Chest: Present: normal inspection Respiratory: Present: other (Scattered rales and rhonchi) Cardiovascular: Present: regular rate, normal rhythm, normal heart sounds Abdominal: Present: soft. Absent: distention, tenderness Extremities: Present: pedal edema, pretibial edema, other (She has little erythema to her anterior brito regions.) Neurological: Present: alert Psychiatric: Present: normal affect, normal mood Skin: Present: warm, dry, intact Course Vital Signs Temperature 96.6 F L 10/19/17 12:18 Pulse Rate 78 10/19/17 12:18 Respiratory Rate 24 H 10/19/17 12:18 Blood Pressure 113/74 10/19/17 12:18 Pulse Oximetry (%) 90 10/19/17 12:18 Temperature 96.6 F L 10/19/17 12:18 Pulse Rate 67 10/19/17 15:16 Respiratory Rate 15 10/19/17 15:16 Blood Pressure 121/63 10/19/17 15:16 Pulse Oximetry (%) 94 10/19/17 15:16 Medical Decision Making - MDM Narrative Medical decision making narrative: This patient's chest x-ray was read as showing some fluid overload but the patient clinically acts more like pneumonia than heart failure and her BNP is only 162. Dr. Lyle will admit her to the hospital for further workup and management. - Lab Data Lab results reviewed: Yes I reviewed the patient's lab results. Result diagrams: 10/19/17 12:34 10/19/17 12:34 Lab Results 10/19/17 10/19/17 10/19/17 Range/Units 12:34 12:34 12:34 WBC 13.3 H (4.5-11.0) K/mcL RBC 4.35 (4.00-5.20) M/mcL Hgb 13.1 (12.0-15.0) g/dL Hct 40.3 (36.0-48.0) % MCV 92.7 (80.0-100.0) fL MCH 30.1 (26.0-34.0) pg MCHC 32.5 (31.0-36.0) g/dL RDW 14.5 (11.5-14.5) % Plt Count 358 (140-440) K/mcL MPV 10.0 (7.4-10.4) fL Total Counted 100 Seg Neutrophils % 62 (38-78) % Band Neutrophils % Not Reportable Lymphocytes % 15 (15-49) % Monocytes % (Manual) 8 (1-12) % Eosinophils % (Manual) 15 H (0-7) % Platelet Estimate Normal (NORMAL) RBC Morphology Normal (NORMAL) VBG Lactic Acid 3.7 H (0.5-2.2) mmol/L Sodium 134 (133-145) mmol/L Potassium 4.4 (3.3-5.1) mmol/L Chloride 93 L (96-108) mmol/L Carbon Dioxide 28 (22-30) mmol/L Anion Gap 13.0 (8-16) BUN 22 (8-23) mg/dl Creatinine 0.9 (0.6-1.1) mg/dl GFR Calculation 64 Glucose 288 H (70-105) mg/dL Calcium 9.3 (8.6-10.4) mg/dl Total Bilirubin < 0.2 (0.0-1.0) mg/dL AST 17 (0-37) U/l ALT 13 (0-40) U/l Alkaline Phosphatase 92 (39-117) U/L NT-Pro-B Natriuret Pep (0-125) pg/ml Total Protein 7.6 (5.9-8.4) gm/dL Albumin 3.7 (3.2-5.2) gm/dL Globulin 3.9 H (2.2-3.7) gm/dL Albumin/Globulin Ratio 0.9 L (1.0-2.3) Procalcitonin (<0.10) ng/mL 18 /10/01 Range/Units 12:34 12:34 WBC (4.5-11.0) K/mcL RBC (4.00-5.20) M/mcL Hgb (12.0-15.0) g/dL Hct (36.0-48.0) % MCV (80.0-100.0) fL MCH (26.0-34.0) pg MCHC (31.0-36.0) g/dL RDW (11.5-14.5) % Plt Count (140-440) K/mcL MPV (7.4-10.4) fL Total Counted Seg Neutrophils % (38-78) % Band Neutrophils % Lymphocytes % (15-49) % Monocytes % (Manual) (1-12) % Eosinophils % (Manual) (0-7) % Platelet Estimate (NORMAL) RBC Morphology (NORMAL) VBG Lactic Acid (0.5-2.2) mmol/L Sodium (133-145) mmol/L Potassium (3.3-5.1) mmol/L Chloride (96-108) mmol/L Carbon Dioxide (22-30) mmol/L Anion Gap (8-16) BUN (8-23) mg/dl Creatinine (0.6-1.1) mg/dl GFR Calculation Glucose (70-105) mg/dL Calcium (8.6-10.4) mg/dl Total Bilirubin (0.0-1.0) mg/dL AST (0-37) U/l ALT (0-40) U/l Alkaline Phosphatase (39-117) U/L NT-Pro-B Natriuret Pep 162.6 H (0-125) pg/ml Total Protein (5.9-8.4) gm/dL Albumin (3.2-5.2) gm/dL Globulin (2.2-3.7) gm/dL Albumin/Globulin Ratio (1.0-2.3) Procalcitonin < 0.05 (<0.10) ng/mL - Radiology Data Radiology results reviewed: Yes I reviewed the patient's radiology results. Disposition Pt seen by [employer]/PA only: No Clinical Impression: Community acquired pneumonia Disposition: Xfer As Inpt ([facility]) Condition: Fair Referrals: Ayleen Gerard MD [Primary Care Provider] - Time of Disposition: 15:45
[2017-10-19 13:21] LABS: Mean Cell Volume 92.7 fL (80.0-100.0); Mean Corpuscular HGB Conc 32.5 g/dL (31.0-36.0); Mean Corpuscular Hemoglobin 30.1 pg (26.0-34.0); Platelet Count 358 K/mcL (140-440); RBC 4.35 M/mcL (4.00-5.20); Red Cell Distribution Width 14.5 % (11.5-14.5)
[2017-10-19] MEDS ORDERED: HYDROmorphone 2 MG/ML VIAL IV PRN (13:37)
[2017-10-19 13:45] LABS: ALT/SGPT 13 U/l (0-40); Albumin 3.7 gm/dL (3.2-5.2); Albumin/Globulin Ratio 0.9 (1.0-2.3); Alkaline Phosphatase 92 U/L (39-117); Blood Urea Nitrogen 22 mg/dl (8-23)
--- NOTE | 2017-10-19 13:49 | XRay Report ---
CLINICAL INFORMATION: Cough COMPARISON: 08/18/2017 FINDINGS: Moderate cardiomegaly is accentuated by leftward rotation. Mediastinum is unremarkable. The pulmonary vessels are mildly distended on today's study. There is is equivocal edema. No infiltrates. No definite effusions. IMPRESSION: Mild CHF or volume overload Interpreted and Authenticated by: Chris Sanderson 10/19/17
[2017-10-19 14:31] LABS: Eosinophils % (Manual) 15 % (0-7); Lymphocytes % 15 % (15-49); Monocytes % (Manual) 8 % (1-12); Platelet Estimate NORMAL (NORMAL); RBC Morphology NORMAL (NORMAL); Segmented Neutrophils % 62 % (38-78)
--- NOTE | 2017-10-19 16:54 | Internal Med History&Physical ---
Medical - H&P: HPI Patient information: Note initiated : 10/19/17 at 4:52 pm Service Date, if different from initiated Date: [] Patient: Joelle Guadalupe a 72 y/o F admitted on for chest pain/shortness of breath. Chief Complaint: [] History of present illness: Ms. Guadalupe is a 72 year old F with history of COPD on home oxygen 2.5 L at baseline, CHF obesity diabetes on insulin metformin presents to the ER today with shortness of breath cough that has been bothering her for the last week. She thinks her grandchildren probably may have been the source of the infection. The cough has been worsening over the last 1 week, associated with chest pain in the front as well as back pain, the patient notes clear sputum sometimes greenish and yellowish in color. No hemoptysis. Cough is worse when lying on her back. The patient also reports increased shortness of breath, increased swelling of her lower extremities. She denies any fevers however does admit to having some chills and rigors. The patient denies any other acute symptoms. She denies any new headaches no difficulty in swallowing no changes in vision or hearing, no change no chest pain without cough, no nausea no vomiting no constipation no diarrhea no urinary complaints. No new joint pains no skin rashes no bleeding episodes denies any acute depression or anxiety. In the emergency room patient had stable vital signs, oxygen requirement at baseline, she was afebrile. She had leukocytosis with WBC count of 13.3, elevated eosinophils at 15%. It seems she has had elevated eosinophils since August, she is on Singulair. The patient has hemoglobin of 13.1, platelets 358. Normal sodium and potassium , creatinine 0.9, glucose 288, BNP was 162, pro calcitonin less than 0.05 lactic acid elevated at 3.7. The patient has a BMI of 44. 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 Chest x-ray interpreted as mild CHF no pneumonia reported. The patient was admitted to the hospital for further management. All systems: reviewed and no additional remarkable complaints except as stated ( as per HPI rest negative) Medical - H&P: PMH Medical history: Morbid obesity COPD on home oxygen Diabetes on insulin Congestive heart failure Asplenia Hypertension Possible DHARA Hyperlipidemia Chronic pain likely diabetic neuropathy Surgical history: History of cholecystectomy Asplenia Hernia repair Family history: reviewed and not pertinent Social history: Active smoker Denies alcohol or substance abuse. Lives by self, has caregiver Medical - H&P: Meds Home Medications Medication Instructions Recorded Confirmed Type Albuterol Sulfate [Proair Hfa] 8.5 gm IH Q4 PRN 12/09/14 10/19/17 History Budesonide/Formoterol Fumarate 10.2 gm IH BID 12/09/14 10/19/17 History [Symbicort 80-4.5 Mcg Inhaler] Citalopram [Celexa] 40 mg PO DAILY 12/09/14 10/19/17 History Cyclobenzaprine [Flexeril] 5 mg PO TIDP PRN #20 tablet 12/09/14 10/19/17 Rx Gabapentin [Neurontin] 300 mg PO BID 12/09/14 10/19/17 History Insulin Aspart [Novolog Flexpen] 10 unit SQ DAILY 12/09/14 10/19/17 History Ipratropium/Albuterol [Duoneb] 3 ml NEB Q6HRT 12/09/14 10/19/17 History Montelukast Sodium [Singulair] 10 mg PO DAILY 12/09/14 10/19/17 History Potassium Chloride [Klor-Con M10] 10 meq PO DAILY 12/09/14 10/19/17 History Simvastatin [Zocor] 20 mg PO HS 12/09/14 10/19/17 History Spironolactone [Aldactone] 50 mg PO DAILY 12/09/14 10/19/17 History metFORMIN HCL [Fortamet] 1,000 mg PO BID 12/09/14 10/19/17 History Accu-Chek 1 each FS ACHS strip 08/18/17 10/19/17 Rx Furosemide [Lasix] 40 mg PO BIDD tablet 08/18/17 10/19/17 Rx Insulin Detemir [Levemir Flextouch] 50 unit SQ DAILY 90 Days #1 08/18/17 Rx insuln.pen Losartan [Cozaar] 25 mg PO DAILY #90 tablet 08/18/17 10/19/17 Rx Metoprolol Succinate [Toprol Xl] 50 mg PO DAILY #90 tab.xl.24h 08/18/17 Rx Pantoprazole [Protonix] 40 mg PO DAILY #90 tablet 08/18/17 10/19/17 Rx Pregabalin [Lyrica] 50 mg PO BID 10/19/17 10/19/17 History Allergies Allergy/AdvReac Type Severity Reaction Status Date / Time Sulfa (Sulfonamide Allergy Severe Hives Verified 10/19/17 12:19 Antibiotics) codeine AdvReac Intermediate Migraine Verified 10/19/17 12:19 Metolazone AdvReac Intermediate Migraine Verified 10/19/17 12:19 morphine AdvReac Intermediate Migraine Verified 10/19/17 12:19 Pneumococcal Vaccine AdvReac Intermediate Migraine Verified 10/19/17 12:19 Medical - H&P: Exam - Constitutional Vitals: Temp Pulse Resp BP Pulse Ox 96.6 F L 66 14 105/56 94 10/19/17 12:18 10/19/17 16:16 10/19/17 15:46 10/19/17 16:16 10/19/17 16:16 Exam: GENERAL: The patient is a well-developed, well-nourished in no apparent distress. Is alert and oriented x3. Morbidly obese VITAL SIGNS: Reviewed and as noted elsewhere. HEENT: Head is normocephalic and atraumatic. Extraocular muscles are intact. Pupils are equal, round, and reactive to light. Nares appeared normal. Mouth appears any without lesions. Mucous membranes are moist. NECK: Normal to inspection, Supple, No lymphadenopathy or thyromegaly. Patient has a short neck LUNGS: Air entry equal on both sides, decreased air entry bilaterally, she has prolonged expiratory phase as well as bilateral expiratory wheezing. Patient has bilateral inspiratory crackles at both bases. She is able to speak full sentences no accessory muscle use HEART: Regular rate and rhythm normal, S1 and S2 heard, no Gallop, S3 or Rub Noted, No Gross murmur heard. ABDOMEN: Soft, nontender, and nondistended. Positive bowel sounds. No hepatosplenomegaly was noted. Large pannus difficult to deep palpation EXTREMITIES: No cyanosis, clubbing, patient has bilateral venous stasis, bilateral pitting edema up to the knee. NEUROLOGIC: Cranial nerves II through XII are grossly intact. Motor and Sensory System Grossly Intact PSYCHIATRIC: Normal affect, Normal Mood. Appropriate Behavior. SKIN: No ulceration or wounds noted, No jaundice, No rash noted. Medical - H&P: Reslt - Labs CBC & Chem 7: 10/19/17 12:34 10/19/17 12:34 Labs: Short CBC 10/19/17 Range/Units 12:34 WBC 13.3 H (4.5-11.0) K/mcL Hgb 13.1 (12.0-15.0) g/dL Hct 40.3 (36.0-48.0) % Plt Count 358 (140-440) K/mcL BMP 10/19/17 12:34 Sodium 134 Potassium 4.4 Chloride 93 L Carbon Dioxide 28 BUN 22 Creatinine 0.9 Glucose 288 H Calcium 9.3 Liver Function 10/19/17 Range/Units 12:34 Total Bilirubin < 0.2 (0.0-1.0) mg/dL AST 17 (0-37) U/l ALT 13 (0-40) U/l Alkaline Phosphatase 92 (39-117) U/L Albumin 3.7 (3.2-5.2) gm/dL Medical - H&P: A/P - Narrative A/P Narrative: A/P Acute COPD exacerbation Chr hypoxic Respiratory failure CHF Exacerbation Lactic acidosis Diabetes on insulin HLD Morbid obesity HTN eosinophilia Plan Admit to tele status Clinically volume overloaded, IV lasix for now, resume aldactone, get echo, marin, monitor i/o, 2L fluid restriction, IV steroids, duonebs and zithromax, mointor trend lactic acid, likely due to copd/ work of breathing/ metformin use, does appear clinically septic, monitor closely for now SSI insulin and lantus for glucose control Resume home meds as appropriate eosinophilia chr likely related to drugs or allergies, outpatient follow up DVT lovenox DIet CArdaic diabetic Full code
[2017-10-19] MEDS ORDERED: AZITHROMYCIN 500 MG in DEXTROSE 5% IN WATER 250 ML IV ONE (18:01)
[2017-10-19] MEDS ORDERED: ACETAMINOPHEN 325 MG TABLET PO PRN (18:01)
[2017-10-19] MEDS ORDERED: NALOXONE HCL 0.4 MG/ML VIAL IV PRN (18:01)
[2017-10-19] MEDS ORDERED: DEXTROSE 31 GM ORAL.SUSP PO PRN (18:01)
[2017-10-19] MEDS ORDERED: CYCLOBENZAPRINE 10 MG TABLET PO PRN (18:01)
[2017-10-19] MEDS ORDERED: DEXTROSE 50% 50 ML VIAL IV PRN (18:01)
[2017-10-19] MEDS ORDERED: ONDANSETRON 4 MG/2 ML VIAL IV PRN (18:01)
[2017-10-19] MEDS: IPRATROPIUM/ALBUTEROL 3 ML AMPUL.NEB NEB SCH ×2 (19:35→23:05)
[2017-10-19] MEDS ORDERED: FUROSEMIDE 40 MG/4 ML VIAL IV ONE (20:25)
[2017-10-19] MEDS: FUROSEMIDE 40 MG/4 ML VIAL IV SCH ×2 (20:26→20:59)
[2017-10-19 20:38] LABS: Appearance,Urine HAZY; Bacteria,Urine MOD /hpf (0); Bilirubin,Urine NEG (NEG); Color,Urine YELLOW; Glucose,Urine (UA) NEGATIVE (NEG); Leukocyte Esterase,Urine 25 /uL (NEG); Mucus,Urine FEW /hpf (0); Protein,Urine NEG (NEG); Specific Gravity,Urine 1.015 (1.000-1.035); Urine Blood NEG mg/dL (<0.03); Urine RBC < 1 /hpf (0-1); Urine Squamous Epithelial Cell 19 /hpf (0-4); Urine Transitional Epi Cells < 1 /hpf (0-2); Urine WBC 13 /hpf (0-4); Urobilinogen,Urine NEG (NEG)
[2017-10-19] MEDS: SIMVASTATIN 20 MG TABLET PO SCH (20:55)
[2017-10-19] MEDS: oxyCODONE/APAP 5/325MG TABLET PO PRN (20:56)
[2017-10-19] MEDS: GABAPENTIN 300 MG CAPSULE PO SCH (20:56)
[2017-10-19] MEDS: INSULIN GLARGINE, HUMAN 1 UNIT/0.01 ML SQ SCH (20:57)
[2017-10-19] MEDS: INSULIN LISPRO 1 UNIT/0.01 ML UNIT SQ SCH ×2 (20:57→20:59)
[2017-10-19] MEDS: ENOXAPARIN 40 MG/0.4 ML SYRINGE SQ SCH (20:57)
[2017-10-19] MEDS ORDERED: PREGABALIN 50 MG CAPSULE PO SCH (21:00)
[2017-10-19] MEDS: Budesonide/Formoterol Fumarate [Symbicort] 80-4.5 mcg Inhaler INH SCH (21:00)
[2017-10-19] MEDS: methylPREDNISolone SOD SUCC 125 MG/2 ML VIAL IV SCH (22:16)
[2017-10-19] MEDS: 0.9 % SODIUM CHLORIDE 10 ML SYRINGE IV SCH (22:16)
[2017-10-20] MEDS: IPRATROPIUM/ALBUTEROL 3 ML AMPUL.NEB NEB SCH ×6 (02:26→23:09)
[2017-10-20 05:40] LABS: Basophils # (Auto) 0 K/mcL (0.0-0.3); Basophils % (Auto) 0.2 % (0.0-2.0); Eosinophils # (Auto) 0 K/mcL (0.0-0.7); Eosinophils % (Auto) 0.2 % (0.0-7.0); Granulocytes % (Auto) 92.4 % (38.0-78.0); Lymphocytes # (Auto) 0.8 K/mcL (1.5-4.8); Lymphocytes % (Auto) 6.7 % (15.5-49.0); Mean Cell Volume 94.8 fL (80.0-100.0); Mean Corpuscular HGB Conc 31.5 g/dL (31.0-36.0); Mean Corpuscular Hemoglobin 29.8 pg (26.0-34.0); Monocytes # (Auto) 0.1 K/mcL (0.1-0.9); Monocytes % (Auto) 0.5 % (1.0-12.0); Platelet Count 364 K/mcL (140-440); RBC 4.55 M/mcL (4.00-5.20); Red Cell Distribution Width 14.4 % (11.5-14.5)
[2017-10-20 05:53] LABS: ALT/SGPT 21 U/l (0-40); Albumin 3.7 gm/dL (3.2-5.2); Albumin/Globulin Ratio 0.9 (1.0-2.3); Alkaline Phosphatase 98 U/L (39-117); Bilirubin,Direct < 0.2 mg/dL (0.0-0.3); Blood Urea Nitrogen 20 mg/dl (8-23); Gamma Glutamyl Transpeptidase 186 U/L (5-36); Uric Acid 7.8 mg/dL (2.5-8.0)
[2017-10-20] MEDS: methylPREDNISolone SOD SUCC 125 MG/2 ML VIAL IV SCH ×3 (06:57→22:28)
[2017-10-20] MEDS: 0.9 % SODIUM CHLORIDE 10 ML SYRINGE IV SCH ×3 (06:57→22:28)
[2017-10-20] MEDS: PANTOPRAZOLE 40 MG TABLET PO SCH (07:25)
[2017-10-20] MEDS: INSULIN LISPRO 1 UNIT/0.01 ML UNIT SQ SCH ×4 (07:39→21:37)
[2017-10-20] MEDS: INSULIN GLARGINE, HUMAN 1 UNIT/0.01 ML SQ SCH ×2 (07:39→21:37)
[2017-10-20] MEDS ORDERED: guaiFENesin/DEXTROMETHORPHAN ORAL SOL PO PRN (07:56)
[2017-10-20] MEDS: ENOXAPARIN 40 MG/0.4 ML SYRINGE SQ SCH (08:16)
[2017-10-20] MEDS: FUROSEMIDE 40 MG/4 ML VIAL IV SCH ×2 (08:16→21:33)
[2017-10-20] MEDS: POTASSIUM CHLORIDE 10 MEQ TABLET PO SCH (08:16)
[2017-10-20] MEDS: SPIRONOLACTONE 25 MG TABLET PO SCH (08:17)
[2017-10-20] MEDS: METOPROLOL SUCCINATE 50 MG TAB.XL.24H PO SCH (08:17)
[2017-10-20] MEDS: MONTELUKAST 10 MG TABLET PO SCH (08:17)
[2017-10-20] MEDS: AZITHROMYCIN 250 MG TABLET PO SCH (08:17)
[2017-10-20] MEDS: GABAPENTIN 300 MG CAPSULE PO SCH ×2 (08:18→21:32)
[2017-10-20] MEDS: LOSARTAN 25 MG TABLET PO SCH (08:18)
[2017-10-20] MEDS: CITALOPRAM 20 MG TABLET PO SCH (08:18)
[2017-10-20] MEDS: PREGABALIN 25 MG CAPSULE PO SCH ×2 (08:42→21:32)
[2017-10-20] MEDS: Budesonide/Formoterol Fumarate [Symbicort] 80-4.5 mcg Inhaler INH SCH ×2 (11:30→22:58)
--- NOTE | 2017-10-20 11:39 | Internal Med Progress Note ---
Medical - PN: Subj Patient information: Note initiated : 10/20/17 at 11:37 am Service Date, if different from initiated Date: [] Patient: Joelle Guadalupe a 72 y/o F admitted on 10/19/17 for Chest Pain/Shortness of Breath. Chief Complaint: [] Interval history: Ms. Guadalupe is a 72 year old F with history of COPD on home oxygen 2.5 L at baseline, CHF obesity diabetes on insulin metformin presents to the ER today with shortness of breath cough that has been bothering her for the last week. She thinks her grandchildren probably may have been the source of the infection. The cough has been worsening over the last 1 week, associated with chest pain in the front as well as back pain, the patient notes clear sputum sometimes greenish and yellowish in color. No hemoptysis. Cough is worse when lying on her back. The patient also reports increased shortness of breath, increased swelling of her lower extremities. She denies any fevers however does admit to having some chills and rigors. The patient denies any other acute symptoms. She denies any new headaches no difficulty in swallowing no changes in vision or hearing, no change no chest pain without cough, no nausea no vomiting no constipation no diarrhea no urinary complaints. No new joint pains no skin rashes no bleeding episodes denies any acute depression or anxiety. In the emergency room patient had stable vital signs, oxygen requirement at baseline, she was afebrile. She had leukocytosis with WBC count of 13.3, elevated eosinophils at 15%. It seems she has had elevated eosinophils since August, she is on Singulair. The patient has hemoglobin of 13.1, platelets 358. Normal sodium and potassium , creatinine 0.9, glucose 288, BNP was 162, pro calcitonin less than 0.05 lactic acid elevated at 3.7. The patient has a BMI of 44. 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 Chest x-ray interpreted as mild CHF no pneumonia reported. 10/20 Patient seen and examined, no acute overnight events, tolerating p.o. diet well. She still has significant cough however notes breathing might be better. She was sitting comfortably in the chair waiting to order for breakfast. Lower extremity edema improved. Patient is -2.1 L since yesterday. Labs are stable Pertinent ROS: Denies headache, dizziness Denies chest pain, palpitations cough prsent, sob improving. Denies abdominal pain, nausea or vomiting. - Constitutional Vitals: Vital Signs Temp Pulse Resp BP Pulse Ox 98.2 F 90 20 125/67 91 10/20/17 04:00 10/20/17 11:08 10/20/17 11:08 10/20/17 04:00 10/20/17 07:37 Period Temp Pulse Resp BP Sys/Coker Pulse Ox Last 24 Hr 96.6 F-98.2 F 7-99 14-24 94-126/52-75 90-95 Intake and Output 10/19/17 10/20/17 10/20/17 21:59 05:59 13:59 Intake Total 940 / 940 670 / 670 Output Total 450 / 450 3300 / 3300 Balance 490 / 490 -2630 / -2630 Weight 273 lb 8 oz Intake & Output: Intake & Output 10/19/17 10/20/17 10/20/17 21:59 05:59 13:59 Intake Total 940 / 940 670 / 670 Output Total 450 / 450 3300 / 3300 Balance 490 / 490 -2630 / -2630 Weight 273 lb 8 oz Intake: IV 700 / 700 250 / 250 Zithromax 500 mg In Dextrose 5% 250 / 250 in Water 250 ml @ 250 mls/hr IV ONCE ONE Rx#:[id number] Lactated Ringers 1,000 ml @ 700 / 700 Wide Open IV BOLUS ONE Rx#: [id number] Oral 240 / 240 420 / 420 Output: Urine Catheter Amount 3300 / 3300 Void Amount 450 / 450 Other: Meal Dinner Percent of Meal Consumed 100% Feeding Ability Assist with Tray Set Up Stool Consistency Loose # Bowel Movements 0 Exam: Constitutional; Afebrile, cooperative, alert, not in distress. Eyes- No icterus, , No periorbital swelling Ears- Ext ear normal, hearing normal to conversation. Neck- Midline trachea, supple Respiratory system: Air Entry equal on both sides, p prolonged expiratory phase , no wheezing audible today on my exam. CVS- Rate rhythm regular, S1,S2 heard, no gallop, no rub. 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 Medical - PN: Obj Da - Labs CBC & Chem 7: 10/20/17 03:40 10/20/17 03:40 Labs: Abnormal Lab Results 10/20/17 10/20/17 10/19/17 03:40 03:40 17:40 WBC 11.5 H Gran % 92.4 H Lymph % (Auto) 6.7 L [place] % (Auto) 0.5 L Gran # 10.6 H Lymph # (Auto) 0.8 L Eosinophils % (Manual) VBG Lactic Acid Chloride 92 L Carbon Dioxide 34 H Glucose 259 H GGT 186 H NT-Pro-B Natriuret Pep Globulin 3.9 H Albumin/Globulin Ratio 0.9 L Triglycerides 232 H Ur Leukocyte Esterase 25 A Urine WBC 13 H Ur Squamous Epith Cells 19 H Urine Bacteria Mod A 10/19/17 10/19/17 10/19/17 12:34 12:34 12:34 WBC Gran % Lymph % (Auto) [place] % (Auto) Gran # Lymph # (Auto) Eosinophils % (Manual) VBG Lactic Acid 3.7 H Chloride 93 L Carbon Dioxide Glucose 288 H GGT NT-Pro-B Natriuret Pep 162.6 H Globulin 3.9 H Albumin/Globulin Ratio 0.9 L Triglycerides Ur Leukocyte Esterase Urine WBC Ur Squamous Epith Cells Urine Bacteria 10/19/17 12:34 WBC 13.3 H Gran % Lymph % (Auto) [place] % (Auto) Gran # Lymph # (Auto) Eosinophils % (Manual) 15 H VBG Lactic Acid Chloride Carbon Dioxide Glucose GGT NT-Pro-B Natriuret Pep Globulin Albumin/Globulin Ratio Triglycerides Ur Leukocyte Esterase Urine WBC Ur Squamous Epith Cells Urine Bacteria Meds: Medications Acetaminophen (Tylenol) 650 mg PO Q6HP PRN PRN Reason: PAIN/FEVER > 101 Albuterol/Ipratropium (Duoneb) 3 ml NEB Q4HRT [facility] Last Admin: 10/20/17 10:54 Dose: 3 ml Azithromycin (Zithromax) 250 mg PO DAILY [facility] Stop: 10/23/17 09:01 Last Admin: 10/20/17 08:17 Dose: 250 mg Citalopram Hydrobromide (Celexa) 40 mg PO DAILY [facility] Last Admin: 10/20/17 08:18 Dose: 40 mg Cyclobenzaprine HCl (Flexeril) 5 mg PO TIDP PRN PRN Reason: Muscle Pain Last Admin: 10/20/17 08:41 Dose: 5 mg Dextrose (Dextrose 50%) 0 ml IV UD PRN PRN Reason: Hypoglycemia Diagnostic Test (Pha) (Accu-Chek) 1 each FS ACHS [facility] Last Admin: 10/20/17 07:34 Dose: 1 each Enoxaparin Sodium (Lovenox) 40 mg SQ DAILY [facility] Last Admin: 10/20/17 08:16 Dose: 40 mg Furosemide (Lasix) 40 mg IV BID [facility] Last Admin: 10/20/17 08:16 Dose: 40 mg Gabapentin (Neurontin) 300 mg PO BID [facility] Last Admin: 10/20/17 08:18 Dose: 300 mg Glucose (Insta-Glucose) 15 gm PO PRN PRN PRN Reason: Hypoglycemia Guaifenesin (Robitussin Dm) 10 ml PO Q4HP PRN PRN Reason: Cough Insulin Glargine (Lantus) 25 unit SQ BID [facility] Last Admin: 10/20/17 07:39 Dose: 25 unit Insulin Human Lispro (Humalog) 0 unit SQ [facility] PRN Reason: Protocol Last Admin: 10/20/17 07:39 Dose: 6 unit Losartan Potassium (Cozaar) 25 mg PO DAILY [facility] Last Admin: 10/20/17 08:18 Dose: 25 mg Methylprednisolone Sodium Succinate (Solu-Medrol) 62.5 mg IV Q8 [facility] Last Admin: 10/20/17 06:57 Dose: 62.5 mg Metoprolol Succinate (Toprol Xl) 50 mg PO DAILY [facility] Last Admin: 10/20/17 08:17 Dose: 50 mg Montelukast Sodium (Singular) 10 mg PO DAILY [facility] Last Admin: 10/20/17 08:17 Dose: 10 mg Naloxone HCl (Narcan) 0.1 mg IV Q2MIN PRN PRN Reason: Opiate Reversal Ondansetron HCl (Zofran) 4 mg IV Q4HP PRN PRN Reason: Nausea And Vomiting Oxycodone/Acetaminophen (Percocet 5-325 Mg) 1 tab PO Q4HP PRN PRN Reason: Severe Pain Last Admin: 10/19/17 20:56 Dose: 1 tab Pantoprazole Sodium (Protonix) 40 mg PO QAMAC [facility] Last Admin: 10/20/17 07:25 Dose: 40 mg Budesonide/Formoterol Fumarate [Symbicort] 80-4.5 Mcg Inhaler 1 dose INH BID [facility] Last Admin: 10/19/17 21:00 Dose: Not Given Potassium Chloride (Kdur) 10 meq PO QAMCC [facility] Last Admin: 10/20/17 08:16 Dose: 10 meq Pregabalin (Lyrica) 50 mg PO BID [facility] Last Admin: 10/20/17 08:42 Dose: 50 mg Simvastatin (Zocor) 20 mg PO HS [facility] Last Admin: 10/19/17 20:55 Dose: 20 mg Sodium Chloride (Saline Flush) 10 ml IV Q8 [facility] Last Admin: 10/20/17 06:57 Dose: 10 ml Spironolactone (Aldactone) 50 mg PO DAILY [facility] Last Admin: 10/20/17 08:17 Dose: 50 mg Medical - PN: A/P - Time Spent With Patient Total time spent is greater than 50% in coordination of care (as documented) at patient's floor/unit and/or counseling patient: - Narrative A/P Narrative: A/P Acute COPD exacerbation Chr hypoxic Respiratory failure CHF Exacerbation Lactic acidosis Diabetes on insulin HLD Morbid obesity HTN eosinophilia Plan continue to monitor on tele IV lasix bid to continue, monitor i/o keep negative balance duonebs, steroids, zithromax to continue, add cough medications glucose high, on insulin ssi. eosiphophilia resolved, due to steroids? If continues to improve, can be discharged back home in AM . DVT lovenox DIet CArdaic diabetic Full code Medical - PN: Qual - VTE Deep Vein Thrombosis/Pulmonary Embolism Present on Admission: No
[2017-10-20] MEDS: SIMVASTATIN 20 MG TABLET PO SCH (21:32)
[2017-10-20] MEDS: oxyCODONE/APAP 5/325MG TABLET PO PRN (21:32)
[2017-10-21] MEDS: IPRATROPIUM/ALBUTEROL 3 ML AMPUL.NEB NEB SCH ×6 (02:55→22:44)
[2017-10-21] MEDS: methylPREDNISolone SOD SUCC 125 MG/2 ML VIAL IV SCH (05:23)
[2017-10-21] MEDS: 0.9 % SODIUM CHLORIDE 10 ML SYRINGE IV SCH ×3 (05:24→21:09)
[2017-10-21 05:42] LABS: Basophils # (Auto) 0 K/mcL (0.0-0.3); Basophils % (Auto) 0 % (0.0-2.0); Eosinophils # (Auto) 0 K/mcL (0.0-0.7); Eosinophils % (Auto) 0 % (0.0-7.0); Granulocytes % (Auto) 91.1 % (38.0-78.0); Lymphocytes % (Auto) 6.3 % (15.5-49.0); Mean Cell Volume 93.9 fL (80.0-100.0); Monocytes # (Auto) 0.4 K/mcL (0.1-0.9); Monocytes % (Auto) 2.6 % (1.0-12.0); Platelet Count 368 K/mcL (140-440); RBC 4.37 M/mcL (4.00-5.20); Red Cell Distribution Width 14.7 % (11.5-14.5)
[2017-10-21 06:32] LABS: ALT/SGPT 15 U/l (0-40); Albumin 3.5 gm/dL (3.2-5.2); Albumin/Globulin Ratio 0.9 (1.0-2.3); Alkaline Phosphatase 89 U/L (39-117); Bilirubin,Direct < 0.2 mg/dL (0.0-0.3); Blood Urea Nitrogen 33 mg/dl (8-23); Gamma Glutamyl Transpeptidase 159 U/L (5-36); Uric Acid 6.6 mg/dL (2.5-8.0)
[2017-10-21] MEDS: INSULIN GLARGINE, HUMAN 1 UNIT/0.01 ML SQ SCH ×2 (07:27→21:08)
[2017-10-21] MEDS: INSULIN LISPRO 1 UNIT/0.01 ML UNIT SQ SCH ×4 (07:28→21:08)
[2017-10-21] MEDS: PANTOPRAZOLE 40 MG TABLET PO SCH (07:29)
[2017-10-21] MEDS ORDERED: FUROSEMIDE 40 MG TABLET PO SCH (08:00)
[2017-10-21] MEDS ORDERED: predniSONE 20 MG TABLET PO SCH (08:00)
[2017-10-21] MEDS: ENOXAPARIN 40 MG/0.4 ML SYRINGE SQ SCH (08:28)
[2017-10-21] MEDS: GABAPENTIN 300 MG CAPSULE PO SCH ×2 (08:29→21:09)
[2017-10-21] MEDS: METOPROLOL SUCCINATE 50 MG TAB.XL.24H PO SCH (08:29)
[2017-10-21] MEDS: POTASSIUM CHLORIDE 10 MEQ TABLET PO SCH (08:30)
[2017-10-21] MEDS: CITALOPRAM 20 MG TABLET PO SCH (08:30)
[2017-10-21] MEDS: LOSARTAN 25 MG TABLET PO SCH (08:30)
[2017-10-21] MEDS: SPIRONOLACTONE 25 MG TABLET PO SCH (08:30)
[2017-10-21] MEDS: MONTELUKAST 10 MG TABLET PO SCH (08:30)
[2017-10-21] MEDS: AZITHROMYCIN 250 MG TABLET PO SCH (08:34)
[2017-10-21] MEDS: PREGABALIN 25 MG CAPSULE PO SCH ×2 (08:42→21:08)
[2017-10-21] MEDS: Budesonide/Formoterol Fumarate [Symbicort] 80-4.5 mcg Inhaler INH SCH ×2 (09:25→21:09)
[2017-10-21] MEDS ORDERED: INSULIN REGULAR, HUMAN 1 UNIT/0.01 ML UNIT IV ONE ×2 (11:13→14:48)
[2017-10-21] MEDS ORDERED: INSULIN LISPRO 1 UNIT/0.01 ML UNIT SQ SCH (12:56)
[2017-10-21] MEDS ORDERED: metFORMIN 500 MG TABLET PO SCH (12:57)
--- NOTE | 2017-10-21 13:50 | Internal Med Progress Note ---
Medical - PN: Subj Patient information: Note initiated : 10/21/17 at 1:49 pm Service Date, if different from initiated Date: [] Patient: Joelle Guadalupe a 72 y/o F admitted on 10/19/17 for Chest Pain/Shortness of Breath. Chief Complaint: [] Interval history: Ms. Guadalupe is a 72 year old F with history of COPD on home oxygen 2.5 L at baseline, CHF obesity diabetes on insulin metformin presents to the ER today with shortness of breath cough that has been bothering her for the last week. She thinks her grandchildren probably may have been the source of the infection. The cough has been worsening over the last 1 week, associated with chest pain in the front as well as back pain, the patient notes clear sputum sometimes greenish and yellowish in color. No hemoptysis. Cough is worse when lying on her back. The patient also reports increased shortness of breath, increased swelling of her lower extremities. She denies any fevers however does admit to having some chills and rigors. The patient denies any other acute symptoms. She denies any new headaches no difficulty in swallowing no changes in vision or hearing, no change no chest pain without cough, no nausea no vomiting no constipation no diarrhea no urinary complaints. No new joint pains no skin rashes no bleeding episodes denies any acute depression or anxiety. In the emergency room patient had stable vital signs, oxygen requirement at baseline, she was afebrile. She had leukocytosis with WBC count of 13.3, elevated eosinophils at 15%. It seems she has had elevated eosinophils since August, she is on Singulair. The patient has hemoglobin of 13.1, platelets 358. Normal sodium and potassium , creatinine 0.9, glucose 288, BNP was 162, pro calcitonin less than 0.05 lactic acid elevated at 3.7. The patient has a BMI of 44. 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 Chest x-ray interpreted as mild CHF no pneumonia reported. 10/20 Patient seen and examined, no acute overnight events, tolerating p.o. diet well. She still has significant cough however notes breathing might be better. She was sitting comfortably in the chair waiting to order for breakfast. Lower extremity edema improved. Patient is -2.1 L since yesterday. Labs are stable 10/21 Pt seen exained, no acute overnivht events, glucose level this AM unfortunately elevated, plan to monitor today, if glucose levels drops to < 300 can d/c later this afternoon, else will likely stay another day pt breathing is better, she is back to baseline. Pertinent ROS: Denies headache, dizziness Denies chest pain, palpitations Denies cough or shortness of breath Denies abdominal pain, nausea or vomiting. - Constitutional Vitals: Vital Signs Temp Pulse Resp BP Pulse Ox 98.4 F 79 20 140/67 90 10/21/17 08:00 10/21/17 10:40 10/21/17 10:40 10/21/17 08:00 10/21/17 08:24 Period Temp Pulse Resp BP Sys/Coker Pulse Ox Last 24 Hr 97.3 F-98.6 F 79-90 16-20 130-140/62-72 90-92 Intake and Output 10/20/17 10/21/17 10/21/17 21:59 05:59 13:59 Intake Total 280 / 280 600 / 600 Output Total 1200 / 1200 950 / 950 500 / 500 Balance -1200 / -1200 -670 / -670 100 / 100 Weight 273 lb 8 oz 278 lb Intake & Output: Intake & Output 10/20/17 10/21/17 10/21/17 21:59 05:59 13:59 Intake Total 280 / 280 600 / 600 Output Total 1200 / 1200 950 / 950 500 / 500 Balance -1200 / -1200 -670 / -670 100 / 100 Weight 273 lb 8 oz 278 lb Intake: Oral 280 / 280 600 / 600 Output: Urine Catheter Amount 1200 / 1200 950 / 950 500 / 500 Other: Meal Lunch Breakfast Percent of Meal Consumed 100% 100% Feeding Ability Assist with Tray Set Up Assist with Tray Set Up Stool Size Moderate Stool Color Brown Stool Consistency Loose # Voids 1 # Bowel Movements 0 Medical - PN: Obj Da - Labs CBC & Chem 7: 10/21/17 03:53 10/21/17 03:53 Labs: Abnormal Lab Results 10/21/17 10/21/17 10/20/17 03:53 03:53 03:40 WBC 15.2 H RDW 14.7 H Gran % 91.1 H Lymph % (Auto) 6.3 L [place] % (Auto) Gran # 13.8 H Lymph # (Auto) 1.0 L Eosinophils % (Manual) VBG Lactic Acid Chloride 91 L 92 L Carbon Dioxide 32 H 34 H BUN 33 H Glucose 481 H* 259 H GGT 159 H 186 H NT-Pro-B Natriuret Pep Globulin 3.8 H 3.9 H Albumin/Globulin Ratio 0.9 L 0.9 L Triglycerides 175 H 232 H Ur Leukocyte Esterase Urine WBC Ur Squamous Epith Cells Urine Bacteria 10/20/17 10/19/17 10/19/17 03:40 17:40 12:34 WBC 11.5 H RDW Gran % 92.4 H Lymph % (Auto) 6.7 L [place] % (Auto) 0.5 L Gran # 10.6 H Lymph # (Auto) 0.8 L Eosinophils % (Manual) VBG Lactic Acid Chloride Carbon Dioxide BUN Glucose GGT NT-Pro-B Natriuret Pep 162.6 H Globulin Albumin/Globulin Ratio Triglycerides Ur Leukocyte Esterase 25 A Urine WBC 13 H Ur Squamous Epith Cells 19 H Urine Bacteria Mod A 10/19/17 10/19/17 10/19/17 12:34 12:34 12:34 WBC 13.3 H RDW Gran % Lymph % (Auto) [place] % (Auto) Gran # Lymph # (Auto) Eosinophils % (Manual) 15 H VBG Lactic Acid 3.7 H Chloride 93 L Carbon Dioxide BUN Glucose 288 H GGT NT-Pro-B Natriuret Pep Globulin 3.9 H Albumin/Globulin Ratio 0.9 L Triglycerides Ur Leukocyte Esterase Urine WBC Ur Squamous Epith Cells Urine Bacteria Meds: Medications Acetaminophen (Tylenol) 650 mg PO Q6HP PRN PRN Reason: PAIN/FEVER > 101 Albuterol/Ipratropium (Duoneb) 3 ml NEB Q4HRT REPLACED BY [facility] Last Admin: 10/21/17 10:22 Dose: 3 ml Azithromycin (Zithromax) 250 mg PO DAILY REPLACED BY [facility] Stop: 10/23/17 09:01 Last Admin: 10/21/17 08:34 Dose: 250 mg Citalopram Hydrobromide (Celexa) 40 mg PO DAILY REPLACED BY [facility] Last Admin: 10/21/17 08:30 Dose: 40 mg Cyclobenzaprine HCl (Flexeril) 5 mg PO TIDP PRN PRN Reason: Muscle Pain Last Admin: 10/20/17 08:41 Dose: 5 mg Dextrose (Dextrose 50%) 0 ml IV UD PRN PRN Reason: Hypoglycemia Diagnostic Test (Pha) (Accu-Chek) 1 each FS ACHS REPLACED BY [facility] Last Admin: 10/21/17 12:41 Dose: 1 each Enoxaparin Sodium (Lovenox) 40 mg SQ DAILY REPLACED BY [facility] Last Admin: 10/21/17 08:28 Dose: 40 mg Furosemide (Lasix) 40 mg PO BIDD REPLACED BY [facility] Last Admin: 10/21/17 09:25 Dose: 40 mg Gabapentin (Neurontin) 300 mg PO BID REPLACED BY [facility] Last Admin: 10/21/17 08:29 Dose: 300 mg Glucose (Insta-Glucose) 15 gm PO PRN PRN PRN Reason: Hypoglycemia Guaifenesin (Robitussin Dm) 10 ml PO Q4HP PRN PRN Reason: Cough Insulin Glargine (Lantus) 25 unit SQ BID REPLACED BY [facility] Last Admin: 10/21/17 07:27 Dose: 25 unit Insulin Human Lispro (Humalog) 0 unit SQ [facility] PRN Reason: Protocol Losartan Potassium (Cozaar) 25 mg PO DAILY REPLACED BY [facility] Last Admin: 10/21/17 08:30 Dose: 25 mg Metformin HCl (Glucophage) 1,000 mg PO BIDCC REPLACED BY [facility] Last Admin: 10/21/17 13:09 Dose: 1,000 mg Metoprolol Succinate (Toprol Xl) 50 mg PO DAILY REPLACED BY [facility] Last Admin: 10/21/17 08:29 Dose: 50 mg Montelukast Sodium (Singular) 10 mg PO DAILY REPLACED BY [facility] Last Admin: 10/21/17 08:30 Dose: 10 mg Naloxone HCl (Narcan) 0.1 mg IV Q2MIN PRN PRN Reason: Opiate Reversal Ondansetron HCl (Zofran) 4 mg IV Q4HP PRN PRN Reason: Nausea And Vomiting Oxycodone/Acetaminophen (Percocet 5-325 Mg) 1 tab PO Q4HP PRN PRN Reason: Severe Pain Last Admin: 10/20/17 21:32 Dose: 1 tab [facility] Admin: 10/21/17 07:29 Dose: 40 mg Budesonide/Formoterol Fumarate [Symbicort] 80-4.5 Mcg Inhaler 1 dose INH BID REPLACED BY [facility] Last Admin: 10/21/17 09:25 Dose: Not Given Potassium [facility]) [facility] Last Admin: 10/21/17 08:30 Dose: 10 meq Prednisone (Prednisone) 40 mg PO [facility] Last Admin: 10/21/17 08:30 Dose: 40 mg Pregabalin (Lyrica) 50 mg PO BID REPLACED BY [facility] Last Admin: 10/21/17 08:42 Dose: 50 mg Simvastatin (Zocor) 20 mg PO HS REPLACED BY [facility] Last Admin: 10/20/17 21:32 Dose: 20 mg Sodium Chloride (Saline Flush) 10 ml IV Q8 REPLACED BY [facility] Last Admin: 10/21/17 05:24 Dose: 10 ml Spironolactone (Aldactone) 50 mg PO DAILY REPLACED BY [facility] Last Admin: 10/21/17 08:30 Dose: 50 mg Medical - PN: A/P - Time Spent With Patient Total time spent is greater than 50% in coordination of care (as documented) at patient's floor/unit and/or counseling patient: - Narrative A/P Narrative: A/P Acute COPD exacerbation Chr hypoxic Respiratory failure CHF Exacerbation Lactic acidosis Diabetes on insulin HLD Morbid obesity HTN eosinophilia Plan IV lasix bid to continue, monitor i/o keep negative balance duonebs, steroids, zithromax to continue, add cough medications glucose high, on insulin ssi. if glucose improves today, can be discharged home if not will stay another day, change from low to medium dose ssi, IV steroids changed to oral, I anticipate patient glucose rise to be transient, and expect this to improve with cessation of steroid therapy. eosiphophilia resolved, due to steroids? DVT lovenox DIet CArdaic diabetic Full code Medical - PN: Qual - VTE Deep Vein Thrombosis/Pulmonary Embolism Present on Admission: No
[2017-10-21] MEDS ORDERED: POTASSIUM CHLORIDE 20 MEQ PACKET PO ONE (14:48)
[2017-10-21] MEDS ORDERED: guaiFENesin/DEXTROMETHORPHAN ORAL SOL PO PRN (15:36)
[2017-10-21] MEDS ORDERED: oxyCODONE/APAP 5/325MG TABLET PO PRN (15:36)
[2017-10-21] MEDS ORDERED: ONDANSETRON 4 MG/2 ML VIAL IV PRN (15:36)
[2017-10-21] MEDS ORDERED: CYCLOBENZAPRINE 10 MG TABLET PO PRN (15:36)
[2017-10-21] MEDS ORDERED: DEXTROSE 31 GM ORAL.SUSP PO PRN (15:36)
[2017-10-21] MEDS ORDERED: ACETAMINOPHEN 325 MG TABLET PO PRN (15:36)
[2017-10-21] MEDS ORDERED: DEXTROSE 50% 50 ML VIAL IV PRN (15:36)
[2017-10-21] MEDS ORDERED: NALOXONE HCL 0.4 MG/ML VIAL IV PRN (15:36)
[2017-10-21] MEDS: FUROSEMIDE 40 MG TABLET PO SCH (17:05)
[2017-10-21] MEDS: metFORMIN 500 MG TABLET PO SCH (19:35)
[2017-10-21] MEDS ORDERED: INSULIN GLARGINE, HUMAN 1 UNIT/0.01 ML SQ SCH (21:00)
[2017-10-21] MEDS ORDERED: SIMVASTATIN 20 MG TABLET PO SCH (21:00)
[2017-10-22] MEDS: IPRATROPIUM/ALBUTEROL 3 ML AMPUL.NEB NEB SCH ×3 (03:47→11:20)
[2017-10-22] MEDS: 0.9 % SODIUM CHLORIDE 10 ML SYRINGE IV SCH (05:17)
[2017-10-22 06:54] LABS: Basophils # (Auto) 0 K/mcL (0.0-0.3); Basophils % (Auto) 0.1 % (0.0-2.0); Eosinophils # (Auto) 0.2 K/mcL (0.0-0.7); Eosinophils % (Auto) 1.3 % (0.0-7.0); Granulocytes % (Auto) 70.4 % (38.0-78.0); Lymphocytes # (Auto) 3.5 K/mcL (1.5-4.8); Lymphocytes % (Auto) 19.5 % (15.5-49.0); Mean Cell Volume 93.5 fL (80.0-100.0); Mean Corpuscular HGB Conc 32.5 g/dL (31.0-36.0); Mean Corpuscular Hemoglobin 30.4 pg (26.0-34.0); Monocytes # (Auto) 1.5 K/mcL (0.1-0.9); Monocytes % (Auto) 8.7 % (1.0-12.0); Platelet Count 374 K/mcL (140-440); RBC 4.37 M/mcL (4.00-5.20); Red Cell Distribution Width 14.5 % (11.5-14.5)
[2017-10-22 07:26] LABS: ALT/SGPT 14 U/l (0-40); Albumin 3.8 gm/dL (3.2-5.2); Albumin/Globulin Ratio 1.1 (1.0-2.3); Alkaline Phosphatase 79 U/L (39-117); Bilirubin,Direct < 0.2 mg/dL (0.0-0.3); Blood Urea Nitrogen 36 mg/dl (8-23); Gamma Glutamyl Transpeptidase 152 U/L (5-36); Uric Acid 6.9 mg/dL (2.5-8.0)
[2017-10-22] MEDS ORDERED: PANTOPRAZOLE 40 MG TABLET PO SCH (07:30)
[2017-10-22] MEDS ORDERED: predniSONE 20 MG TABLET PO SCH (08:00)
[2017-10-22] MEDS ORDERED: POTASSIUM CHLORIDE 10 MEQ TABLET PO SCH (08:00)
[2017-10-22] MEDS: INSULIN GLARGINE, HUMAN 1 UNIT/0.01 ML SQ SCH (08:30)
[2017-10-22] MEDS: INSULIN LISPRO 1 UNIT/0.01 ML UNIT SQ SCH ×2 (08:30→11:53)
[2017-10-22] MEDS: metFORMIN 500 MG TABLET PO SCH (08:31)
[2017-10-22] MEDS: GABAPENTIN 300 MG CAPSULE PO SCH (08:32)
[2017-10-22] MEDS: PREGABALIN 25 MG CAPSULE PO SCH (08:32)
[2017-10-22] MEDS: FUROSEMIDE 40 MG TABLET PO SCH (08:32)
[2017-10-22] MEDS: Budesonide/Formoterol Fumarate [Symbicort] 80-4.5 mcg Inhaler INH SCH (08:33)
[2017-10-22] MEDS ORDERED: ENOXAPARIN 40 MG/0.4 ML SYRINGE SQ SCH (09:00)
[2017-10-22] MEDS ORDERED: MONTELUKAST 10 MG TABLET PO SCH (09:00)
[2017-10-22] MEDS ORDERED: CITALOPRAM 20 MG TABLET PO SCH (09:00)
[2017-10-22] MEDS ORDERED: SPIRONOLACTONE 25 MG TABLET PO SCH (09:00)
[2017-10-22] MEDS ORDERED: LOSARTAN 25 MG TABLET PO SCH (09:00)
[2017-10-22] MEDS ORDERED: METOPROLOL SUCCINATE 50 MG TAB.XL.24H PO SCH (09:00)
[2017-10-22] MEDS ORDERED: AZITHROMYCIN 250 MG TABLET PO SCH (09:00)
--- NOTE | 2017-10-22 10:47 | Discharge Summary ---
Medical - DS: Prov Patient information: Note initiated : 10/22/17 at 10:44 am Service Date, if different from initiated Date: [] Patient: Joelle Guadalupe 72 y/o F admitted on 10/19/17 for Chest Pain/Shortness of Breath. Chief Complaint: [] Date of admission: 10/19/17 17:30 Discharge date: 10/22/17 Primary care physician: Ayleen Gerard Admitting clinician: Vaishnavi Lyle Consults: 10/19/17 16:04 Consult to Physician [CONS] Stat Comment: Consulting Provider: Vaishnavi Lyle Reason For Exam: Physician to Consult Discharging clinician: Vaishnavi Lyle Medical - DS: Meds - Discharge Medications Prescriptions: Azithromycin [Zithromax] 250 mg PO DAILY #2 tab predniSONE [Prednisone] 40 mg PO QAMCC #3 tab Active and Home Medications: Home Medications Albuterol Sulfate [Proair Hfa] 8.5 gm IH Q4 PRN 12/09/14 [History Confirmed 10/01 Last Taken Unknown] Budesonide/Formoterol Fumarate [Symbicort 80-4.5 Mcg Inhaler] 10.2 gm IH BID [History Confirmed 10/19/17 Last Taken Unknown] Citalopram [Celexa] 40 mg PO DAILY 12/09/14 [History Confirmed 10/19/17 Last Taken Unknown] Cyclobenzaprine [Flexeril] 5 mg PO TIDP PRN #20 tablet 12/09/14 [Rx Confirmed Last Taken Unknown] Gabapentin [Neurontin] 300 mg PO BID 12/09/14 [History Confirmed 10/19/17 Last Taken Unknown] Insulin Aspart [Novolog Flexpen] 10 unit SQ DAILY 12/09/14 [History Confirmed Last Taken Unknown] Ipratropium/Albuterol [Duoneb] 3 ml NEB Q6HRT 12/09/14 [History Confirmed Last Taken Unknown] Montelukast Sodium [Singulair] 10 mg PO DAILY 12/09/14 [History Confirmed Last Taken Unknown] Potassium Chloride [Klor-Con M10] 10 meq PO DAILY 12/09/14 [History Confirmed Last Taken Unknown] Simvastatin [Zocor] 20 mg PO HS 12/09/14 [History Confirmed 10/19/17 Last Taken Unknown] Spironolactone [Aldactone] 50 mg PO DAILY 12/09/14 [History Confirmed 10/19/17 Last Taken Unknown] metFORMIN HCL [Fortamet] 1,000 mg PO BID 12/09/14 [History Confirmed 10/19/17 Last Taken Unknown] Accu-Chek 1 each FS ACHS strip 08/18/17 [Rx Confirmed 10/19/17 Last Taken Unknown] Furosemide [Lasix] 40 mg PO BIDD tablet 08/18/17 [Rx Confirmed 10/19/17 Last Taken Unknown] Insulin Detemir [Levemir Flextouch] 50 unit SQ DAILY 90 Days #1 insuln.pen 08/18 [Rx Confirmed 10/19/17 Last Taken Unknown] Losartan [Cozaar] 25 mg PO DAILY #90 tablet 08/18/17 [Rx Confirmed 10/19/17 Last Taken Unknown] Metoprolol Succinate [Toprol Xl] 50 mg PO DAILY #90 tab.xl.24h 08/18/17 [Rx Confirmed 10/19/17 Last Taken Unknown] Pantoprazole [Protonix] 40 mg PO DAILY #90 tablet 08/18/17 [Rx Confirmed Last Taken Unknown] Pregabalin [Lyrica] 50 mg PO BID 10/19/17 [History Confirmed 10/19/17 Last Taken Unknown] Medical - DS: Hosp Hospital course: Ms. Guadalupe is a 72 year old F with history of COPD on home oxygen 2.5 L at baseline, CHF obesity diabetes on insulin metformin presents to the ER today with shortness of breath cough that has been bothering her for the last week. She thinks her grandchildren probably may have been the source of the infection. The cough has been worsening over the last 1 week, associated with chest pain in the front as well as back pain, the patient notes clear sputum sometimes greenish and yellowish in color. No hemoptysis. Cough is worse when lying on her back. The patient also reports increased shortness of breath, increased swelling of her lower extremities. She denies any fevers however does admit to having some chills and rigors. The patient denies any other acute symptoms. She denies any new headaches no difficulty in swallowing no changes in vision or hearing, no change no chest pain without cough, no nausea no vomiting no constipation no diarrhea no urinary complaints. No new joint pains no skin rashes no bleeding episodes denies any acute depression or anxiety. In the emergency room patient had stable vital signs, oxygen requirement at baseline, she was afebrile. She had leukocytosis with WBC count of 13.3, elevated eosinophils at 15%. It seems she has had elevated eosinophils since August, she is on Singulair. The patient has hemoglobin of 13.1, platelets 358. Normal sodium and potassium , creatinine 0.9, glucose 288, BNP was 162, pro calcitonin less than 0.05 lactic acid elevated at 3.7. The patient has a BMI of 44. 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 Chest x-ray interpreted as mild CHF no pneumonia reported. The patient admitted to the hospital for further management, with the diagnosis of COPD exacerbation and mild CHF exacerbation. The patient was treated with IV lasix, for the chf and responde to treatment well, negatie 3600 ml at discharge. For the COPD she was treated with steroids, duonebs and zithormax, tolerated same well, she still has some cough, but otherwise fels well, will be discharged on po steroids for another 3 days, with azithromycin for another 2 days. The patient had hyperglycemia secondary to steroid use in the hospital, needing higher doses of insulin which kept her in the hospital for 1 extra day. The patient glucose is better controlled now and is being discharged on her home regime Rest of the stay in the hospital is uneventful, no changes made to her [facility] home med list Discharge diagnosis: COPD/ CHF exacerbation - Time Spent with Patient Total time spent providing and/or coordinating discharge services: Less than 30 minutes Medical - DS: Exam - Constitutional Vitals: Vital Signs Temp Pulse Pulse Resp BP Pulse Ox 10/22/17 08:00 98.0 F 66 18 136/72 92 10/22/17 07:01 92 10/22/17 07:00 73 16 92 10/22/17 04:00 98.0 F 72 18 136/68 10/22/17 00:00 98.0 F 68 20 10/21/17 22:45 78 20 10/21/17 20:00 98.4 F 74 18 125/63 92 10/21/17 18:47 72 18 94 10/21/17 18:43 72 18 10/21/17 16:00 97.8 F 73 20 115/76 91 10/21/17 15:35 79 18 10/21/17 12:00 98.0 F 83 24 H 145/72 92 Intake and Output 10/21/17 10/22/17 10/22/17 21:59 05:59 13:59 Intake Total 930 / 930 Balance 930 / 930 Intake: Oral 930 / 930 Other: Meal hs snack Percent of Meal Consumed 100% Feeding Ability Assist with Tray Set Up # Voids 1 3 1 Weight 283 lb Additional comments: Constitutional; Afebrile, cooperative, alert, not in distress. Eyes- No icterus, , No periorbital swelling Ears- Ext ear normal, hearing normal to conversation. Neck- Midline trachea, supple Respiratory system: Air Entry equal on both sides, No crackles or wheezing, no rhonchi. CVS- Rate rhythm regular, S1,S2 heard, no gallop, no rub. Abdomen- Soft nontender abdomen, no organomegaly, no tenderness, no guarding or rigidity, [employer]- AOOx3, moving all extremities, no gross focal deficit noted. Medical - DS: Data Labs on day of discharge: Labs from last 24 hours 10/22/17 10/22/17 03:42 03:42 WBC 17.8 H RBC 4.37 Hgb 13.3 Hct 40.9 MCV 93.5 MCH 30.4 MCHC 32.5 RDW 14.5 Plt Count 374 MPV 9.9 Gran % 70.4 Lymph % (Auto) 19.5 [place] % (Auto) 8.7 Eos % (Auto) 1.3 Baso % (Auto) 0.1 Gran # 12.5 H Lymph # (Auto) 3.5 [place] # (Auto) 1.5 H Eos # (Auto) 0.2 Baso # (Auto) 0 Sodium 141 Potassium 3.6 Chloride 94 L Carbon Dioxide 35 H Anion Gap 12.0 BUN 36 H Creatinine 0.8 GFR Calculation 74 Glucose 116 H Uric Acid 6.9 Calcium 9.3 Phosphorus 3.0 Magnesium 1.9 Total Bilirubin 0.2 Direct Bilirubin < 0.2 GGT 152 H AST 15 ALT 14 Alkaline Phosphatase 79 Lactate Dehydrogenase 175 Total Protein 7.4 Albumin 3.8 Globulin 3.6 Albumin/Globulin Ratio 1.1 Triglycerides 179 H Preliminary micro results at discharge 10/19/17 14:49 Blood Culture - Preliminary Blood 10/19/17 14:49 Blood Culture - Preliminary Blood Medical - DS: A/P - Patient/Caregiver Discharge Instructions Activity: increase activity as tolerated Diet: Cardiac, Consistent Carbohydrate Additional Instructions: Your follow up appointment is October 26 at 1000. Follow up with PCP as above Take prendisone 40mg (2 tabs ) by mouth with food for 3 more days. take azithromycin 250mg once daily for 2 more days Closely monitor your glucose, I expect this to be high, as you are on steroids, but it should come back to baseline after you stop the prednisone treatment. Call your PCP if the glucose values stay > 400 persistently Go to the ER if worsening chest pain, shortness of breath, fever, or any other concerning symptom. - Follow up Plan Follow up with: Ayleen Gerard MD [Primary Care Provider] - 10/26/17 10:00 am Disposition: Home, Self-Care Prognosis: Fair Rehab Potential: Fair I certify that the patient requires SNF services: No Overall status at discharge: patient is progressing back to baseline Medical - DS: Qual - VTE Deep Vein Thrombosis/Pulmonary Embolism Present on Admission: No
== END 2017-10-22 12:35 | disposition home or self-care (01) | DRG 191 ==
LOC: ED 12:17 → ICU 17:30
PROVIDERS: ADMIT Internal Medicine; ATTEND Internal Medicine

== ENCOUNTER 2023-04-24 13:21 | Observation (INO) ==
[2023-04-24] MEDS ORDERED: PROCHLORPERAZINE 10 MG/2 ML VIAL IV ONE (13:36)
[2023-04-24 14:04] LABS: POC Calcium, Ionized 1.22 (1.16-1.32); POC Potassium 4.5 (3.3-5.1)
[2023-04-24 14:18] LABS: Basophils # (Auto) 0.06 K/mcL (0.00-0.30); Basophils % (Auto) 0.5 % (0.0-2.0); Eosinophils # (Auto) 0.26 K/mcL (0.00-0.70); Eosinophils % (Auto) 2.2 % (0.0-7.0); Hematocrit 47.6 % (34.1-44.9); Hemoglobin 15.2 g/dL (11.2-15.7); Lymphocytes # (Auto) 2.31 K/mcL (1.50-4.80); Lymphocytes % (Auto) 19.2 % (15.5-49.0); Mean Cell Volume 96.4 fL (80.0-100.0); Mean Corpuscular HGB Conc 31.9 g/dL (31.0-36.0); Mean Platelet Volume 11.4 fL (8.8-12.5); Monocytes # (Auto) 1.14 K/mcL (0.10-0.90); Monocytes % (Auto) 9.5 % (1.0-12.0); Neutrophils % (Auto) 68.2 % (38.0-78.0); Platelet Count 319 K/mcL (140-440); RBC 4.94 M/mcL (3.59-5.38); Red Cell Distribution Width 13.6 % (11.5-14.5)
[2023-04-24] MEDS ORDERED: HYDROmorphone 0.5 MG/0.5 ML SYRINGE IV PRN (19:51)
[2023-04-24] MEDS ORDERED: DEXTROSE 31 GM ORAL.SUSP PO PRN (19:51)
[2023-04-24] MEDS ORDERED: ACETAMINOPHEN 325 MG TABLET PO PRN (19:51)
[2023-04-24] MEDS ORDERED: ONDANSETRON 4 MG/2 ML VIAL IV PRN (19:51)
[2023-04-24] MEDS ORDERED: DEXTROSE 50% 50 ML VIAL IV PRN (19:51)
[2023-04-24] MEDS ORDERED: oxyCODONE IR 5 MG TABLET PO PRN (19:51)
[2023-04-24] MEDS: 0.9 % SODIUM CHLORIDE 10 ML SYRINGE IV SCH (21:44)
[2023-04-24] MEDS: INSULIN LISPRO 1 UNIT/0.01 ML UNIT SQ SCH (21:44)
[2023-04-24] MEDS: DOCUSATE SODIUM 100 MG CAPSULE PO SCH (22:42)
[2023-04-24] MEDS: SENNOSIDES 1 TABLET PO SCH (22:42)
[2023-04-25] MEDS: 0.9 % SODIUM CHLORIDE 10 ML SYRINGE IV SCH ×3 (05:21→20:01)
[2023-04-25 07:18] LABS: Basophils # (Auto) 0.06 K/mcL (0.00-0.30); Basophils % (Auto) 0.6 % (0.0-2.0); Eosinophils # (Auto) 0.32 K/mcL (0.00-0.70); Eosinophils % (Auto) 3.1 % (0.0-7.0); Hemoglobin 13.5 g/dL (11.2-15.7); Lymphocytes # (Auto) 2.42 K/mcL (1.50-4.80); Lymphocytes % (Auto) 23.7 % (15.5-49.0); Mean Cell Volume 98.4 fL (80.0-100.0); Mean Corpuscular HGB Conc 31.4 g/dL (31.0-36.0); Mean Platelet Volume 11.6 fL (8.8-12.5); Monocytes % (Auto) 9.8 % (1.0-12.0); Neutrophils % (Auto) 62.4 % (38.0-78.0); Platelet Count 301 K/mcL (140-440); RBC 4.37 M/mcL (3.59-5.38); Red Cell Distribution Width 13.6 % (11.5-14.5); WBC 10.2 K/mcL (4.5-11.0)
[2023-04-25 07:46] LABS: ALT/SGPT 12 U/L (<40); AST/SGOT 14 U/L (<32); Albumin 3.3 gm/dL (3.2-5.2); Albumin/Globulin Ratio 1.1 (1.0-2.3); Alkaline Phosphatase 83 U/L (39-117); Bilirubin,Total 0.2 mg/dL (0.1-1.0); Blood Urea Nitrogen 21 mg/dL (8-23); Carbon Dioxide 27 mmol/L (22-30); Chloride 103 mmol/L (96-108); Globulin 3.1 gm/dL (2.2-3.7); Glomerular Filtration Rate 62; Glucose 219 mg/dL (70-105)
[2023-04-25] MEDS: DOCUSATE SODIUM 100 MG CAPSULE PO SCH ×3 (08:00→19:54)
[2023-04-25] MEDS: INSULIN LISPRO 1 UNIT/0.01 ML UNIT SQ SCH ×4 (08:00→19:58)
[2023-04-25] MEDS: SENNOSIDES 1 TABLET PO SCH (19:53)
[2023-04-26 01:57] LABS: Appearance,Urine HAZY (Clear); Bacteria,Urine MANY /hpf (0); Bilirubin,Urine Negative (Negative); Color,Urine YELLOW; Culture Indicated,Urine No; Glucose,Urine (UA) Negative (Negative); Ketones,Urine Negative (Negative); Leukocyte Esterase,Urine 250 /uL (Negative); Mucus,Urine MANY /hpf; Nitrate,Urine POS (Negative); Protein,Urine Negative (Negative); Specific Gravity,Urine 1.021 (1.000-1.035); Urine Blood Negative (Negative); Urine RBC 2 /hpf (0-3); Urine Squamous Epithelial Cell 6 /hpf (0-4); Urine WBC 20 /hpf (0-4); Urobilinogen,Urine Negative
[2023-04-26] MEDS: 0.9 % SODIUM CHLORIDE 10 ML SYRINGE IV SCH ×2 (05:28→14:21)
[2023-04-26 06:55] LABS: Basophils # (Auto) 0.06 K/mcL (0.00-0.30); Basophils % (Auto) 0.6 % (0.0-2.0); Eosinophils % (Auto) 3.1 % (0.0-7.0); Hemoglobin 14.4 g/dL (11.2-15.7); Lymphocytes # (Auto) 2.73 K/mcL (1.50-4.80); Lymphocytes % (Auto) 27.9 % (15.5-49.0); Mean Cell Volume 99.6 fL (80.0-100.0); Mean Corpuscular HGB Conc 31.3 g/dL (31.0-36.0); Mean Platelet Volume 11.9 fL (8.8-12.5); Monocytes # (Auto) 1.07 K/mcL (0.10-0.90); Platelet Count 285 K/mcL (140-440); RBC 4.62 M/mcL (3.59-5.38); Red Cell Distribution Width 13.5 % (11.5-14.5); WBC 9.8 K/mcL (4.5-11.0)
[2023-04-26 07:21] LABS: ALT/SGPT 10 U/L (<40); AST/SGOT 14 U/L (<32); Albumin 3.4 gm/dL (3.2-5.2); Albumin/Globulin Ratio 0.9 (1.0-2.3); Alkaline Phosphatase 90 U/L (39-117); Bilirubin,Total 0.2 mg/dL (0.1-1.0); Blood Urea Nitrogen 22 mg/dL (8-23); Calcium 9.4 mg/dL (8.6-10.4); Carbon Dioxide 25 mmol/L (22-30); Chloride 103 mmol/L (96-108); Globulin 3.7 gm/dL (2.2-3.7); Glomerular Filtration Rate 71; Glucose 196 mg/dL (70-105)
[2023-04-26] MEDS: INSULIN LISPRO 1 UNIT/0.01 ML UNIT SQ SCH ×2 (08:09→12:02)
[2023-04-26] MEDS ORDERED: FLUZONE HD QS2023-24/PF 240 MCG/0.7 ML SYRINGE IM ONE (10:00)
[2023-04-26] MEDS: DOCUSATE SODIUM 100 MG CAPSULE PO SCH (10:02)
== END 2023-04-26 17:00 | disposition home or self-care (01) ==
LOC: ED 13:21 → MEDSUR 13:21
PROVIDERS: ADMIT Internal Medicine; ATTEND Internal Medicine